=== PATIENT | male | born 1945 | race Caucasian/White ===

== ENCOUNTER → 2018-12-06 11:13 | Outpatient (CLI) | payer MEDICARE, OTHER, SELFPAY ==
[2018-12-06 11:50] LABS: Add Manual Diff / Slide Review NO; Basophils Absolute Auto 0 /uL (0-100); Basophils Percent Auto 0.8 % (0-2); Eosinophils Absolute Auto 100 /uL (0-450); Eosinophils Percent Auto 2.2 % (2-4); Hematocrit 43.8 % (41-53); Hemoglobin 14.8 g/dL (13.5-17.5); Lymphocytes Absolute Auto 1700 /uL (1100-4500); Lymphocytes Percent Auto 30.4 % (25-40); Mean Corpuscular HGB Conc 33.8 % (30-36); Mean Corpuscular Hemoglobin 31.7 PG (26-34); Mean Corpuscular Volume 93.7 fL (80-100); Monocytes Absolute Auto 500 /uL (0-900); Monocytes Percent Auto 8.9 % (3-14); Neutrophils Absolute Auto 3300 /uL (1500-7000); Neutrophils Percent Auto 57.7 % (50-75); Platelet Count 252 X10^3/uL (150-400); Red Blood Cell Count 4.68 X10^6/uL (4.5-5.9); Red Cell Distribution Width 13.4 % (11.6-14.8); White Blood Cell Count 5.7 X10^3/uL (4.5-11.0)
[2018-12-06 13:14] LABS: Alanine Aminotransferase 18 IU/L (21-72); Albumin 4.2 g/dL (3.5-5.0); Albumin Globulin Ratio 1.5 (1.0-2.8); Alkaline Phosphatase 57 U/L (38-126); Aspartate Aminotransferase 22 IU/L (17-59); BUN Creatinine Ratio 16.3 (6-22); Bilirubin Total 0.9 mg/dL (0.2-1.3); Blood Urea Nitrogen 13 mg/dL (9-20); Calcium 9.8 mg/dL (8.4-10.2); Carbon Dioxide 29 mmol/L (22-32); Chloride 105 mmol/L (98-107); Cholesterol 275 mg/dL (140-199); Estimated Glomerular Filt Rate > 60.0 mL/min (>60); Globulin 2.8 g/dL (1.7-4.1); Glucose 95 mg/dL (80-110); HDL Cholesterol 61 mg/dL (40-60); HEMOLYSIS < 15 (0-50); LDL Cholesterol Calculated 184 mg/dL (<100); Potassium 5.1 mmol/L (3.4-5.1); Sodium 140 mmol/L (137-145); Triglycerides 149 mg/dL (35-150)
[2018-12-06 13:45] LABS: Thyroid Stimulating Hormone 1.63 uIU/mL (0.47-4.68)
== END ==
PROVIDERS: Family Provider Internal Medicine; PCP Internal Medicine; Visit Provider Hospitalist
DX: I10 Essential (primary) hypertension (principal)
CPT/HCPCS: 36415; 80053; 80061; 84443; 85025

== ENCOUNTER → 2019-01-08 11:05 | Outpatient (CLI) | payer MEDICARE, OTHER, SELFPAY ==
[2019-01-08 12:11] LABS: Blood Urea Nitrogen 12 mg/dL (9-20); Calcium 10.1 mg/dL (8.4-10.2); Carbon Dioxide 28 mmol/L (22-32); Chloride 108 mmol/L (98-107); Estimated Glomerular Filt Rate > 60.0 mL/min (>60); Glucose 94 mg/dL (80-110); HEMOLYSIS < 15 (0-50); Sodium 145 mmol/L (137-145)
[2019-01-08 12:25] LABS: Potassium 5.4 mmol/L (3.4-5.1)
== END ==
PROVIDERS: Family Provider Internal Medicine; PCP Internal Medicine; Visit Provider Hospitalist
DX: I10 Essential (primary) hypertension (principal)
CPT/HCPCS: 36415; 80048

== ENCOUNTER → 2020-12-01 11:55 | Outpatient (CLI) | payer MEDICARE, OTHER, SELFPAY ==
[2020-12-01 12:57] LABS: Alanine Aminotransferase 13 IU/L (<50); Albumin Globulin Ratio 1.3 (1.0-2.8); Alkaline Phosphatase 61 U/L (38-126); Aspartate Aminotransferase 25 IU/L (17-59); BUN Creatinine Ratio 14.7 (6-22); Bilirubin Total 0.8 mg/dL (0.2-1.3); Blood Urea Nitrogen 10 mg/dL (9-20); Calcium 9.4 mg/dL (8.4-10.2); Carbon Dioxide 27 mmol/L (22-32); Chloride 106 mmol/L (98-107); Cholesterol 261 mg/dL (140-199); Estimated Glomerular Filt Rate > 60.0 mL/min (>60); Globulin 3.1 g/dL (1.7-4.1); Glucose 101 mg/dL (80-110); HDL Cholesterol 63 mg/dL (40-60); HEMOLYSIS < 15 (0-50); LDL Cholesterol Calculated 181 mg/dL (<100); Potassium 5.3 mmol/L (3.4-5.1); Sodium 137 mmol/L (137-145); Total Protein 7.1 g/dL (6.3-8.2); Triglycerides 87 mg/dL (35-150)
[2020-12-01 13:28] LABS: Prostate Specific Antigen Scrn 7.99 ng/mL (0.1-4.0)
[2020-12-01 13:31] LABS: TSH w/ Reflex to FT4 1.89 uIU/mL (0.47-4.68)
[2020-12-02 10:48] LABS: Fecal Immunochemical Test Positive (Negative)
== END ==
PROVIDERS: Family Provider Internal Medicine; PCP Internal Medicine; Referring Provider Internal Medicine; Visit Provider Internal Medicine
DX: E78.2 Mixed hyperlipidemia (principal); Z12.5 Encounter for screening for malignant neoplasm of prostate; I10 Essential (primary) hypertension; Z12.11 Encounter for screening for malignant neoplasm of colon
CPT/HCPCS: 36415; 80053; 80061; 82274; 84443; G0103

== ENCOUNTER → 2020-12-03 14:33 | Outpatient (CLI) | payer MEDICARE, OTHER, SELFPAY ==
[2020-12-04 08:47] LABS: PSA Free % 15.4 % (.); PSA, Total 8.9 ng/mL (0.0-4.0)
== END ==
PROVIDERS: Family Provider Internal Medicine; PCP Internal Medicine; Referring Provider Internal Medicine; Visit Provider Internal Medicine
DX: R97.20 Elevated prostate specific antigen [PSA] (principal)
CPT/HCPCS: 36415; 84153; 84154

== ENCOUNTER → 2021-04-22 11:11 | Outpatient (CLI) | payer MEDICARE, OTHER, SELFPAY ==
[2021-04-22 12:45] LABS: Cholesterol 239 mg/dL (140-199); HDL Cholesterol 67 mg/dL (40-60); LDL Cholesterol Calculated 150 mg/dL (<100); Triglycerides 112 mg/dL (35-150)
[2021-04-22 13:17] LABS: Prostate Specific Antigen 7.81 ng/mL (0.10-4.00)
== END ==
PROVIDERS: Family Provider Internal Medicine; PCP Internal Medicine; Referring Provider Internal Medicine; Visit Provider Internal Medicine
DX: I10 Essential (primary) hypertension (principal); R97.20 Elevated prostate specific antigen [PSA]; E78.2 Mixed hyperlipidemia
CPT/HCPCS: 36415; 80061; 84153

== ENCOUNTER → 2021-12-07 11:04 | Outpatient (CLI) | payer MEDICARE, OTHER, SELFPAY ==
[2021-12-07 13:24] LABS: Alanine Aminotransferase 10 IU/L (<50); Albumin 4.3 g/dL (3.5-5.0); Albumin Globulin Ratio 1.6 (1.0-2.8); Alkaline Phosphatase 56 U/L (38-126); Aspartate Aminotransferase 21 IU/L (17-59); BUN Creatinine Ratio 13.2 (6-22); Bilirubin Total 1.1 mg/dL (0.2-1.3); Blood Urea Nitrogen 10 mg/dL (9-20); Calcium 9.1 mg/dL (8.4-10.2); Carbon Dioxide 26 mmol/L (22-32); Chloride 104 mmol/L (98-107); Cholesterol 221 mg/dL (140-199); Estimated Glomerular Filt Rate > 60 mL/min (>60); Globulin 2.7 g/dL (1.7-4.1); Glucose 91 mg/dL (80-110); HDL Cholesterol 77 mg/dL (40-60); HEMOLYSIS < 15 (0-50); LDL Cholesterol Calculated 123 mg/dL (<100); Potassium 4.6 mmol/L (3.4-5.1); Sodium 137 mmol/L (137-145); Triglycerides 104 mg/dL (35-150)
[2021-12-07 13:55] LABS: Prostate Specific Antigen 7.31 ng/mL (0.10-4.00)
== END ==
PROVIDERS: Family Provider Internal Medicine; PCP Internal Medicine; Referring Provider Internal Medicine; Visit Provider Internal Medicine
DX: E78.2 Mixed hyperlipidemia (principal); R97.20 Elevated prostate specific antigen [PSA]; I10 Essential (primary) hypertension
CPT/HCPCS: 36415; 80053; 80061; 84153

== ENCOUNTER → 2022-07-08 15:23 | Outpatient (CLI) | payer MEDICARE, OTHER, SELFPAY ==
--- NOTE | 2022-07-08 15:43 | DI.RAD.S_ITS ---
PROCEDURE: XR CHEST 2V INDICATIONS: dyspnea TECHNIQUE: 2 views of the chest were acquired. COMPARISON: None. FINDINGS: Surgical changes and devices: None. Lungs and pleura: Lungs appear clear. No pleural effusions or pneumothorax. Mediastinum: Mediastinal contours are normal. Heart size is normal. Bones and chest wall: No suspicious bony abnormalities. Soft tissues appear unremarkable. IMPRESSION: No acute cardiopulmonary abnormality. Dictated by: Mika Gibbs M.D. on 07/08/2022 at 17:26 Approved by: Mika Gibbs M.D. on 07/08/2022 at 17:27
[2022-07-08 16:13] LABS: Add Manual Diff / Slide Review NO; Basophils Absolute Auto 0 /uL (0-100); Basophils Percent Auto 0.6 % (0-2); Eosinophils Absolute Auto 0 /uL (0-450); Eosinophils Percent Auto 0.3 % (2-4); Hemoglobin 14.3 g/dL (13.5-17.5); Lymphocytes Absolute Auto 1500 /uL (1100-4500); Lymphocytes Percent Auto 21.2 % (25-40); Mean Corpuscular HGB Conc 34.1 % (30-36); Mean Corpuscular Hemoglobin 33.1 PG (26-34); Mean Corpuscular Volume 97.1 fL (80-100); Monocytes Absolute Auto 500 /uL (0-900); Monocytes Percent Auto 7.8 % (3-14); Neutrophils Absolute Auto 4900 /uL (1500-7000); Neutrophils Percent Auto 70.1 % (50-75); Platelet Count 207 X10^3/uL (150-400); Red Blood Cell Count 4.32 X10^6/uL (4.5-5.9); Red Cell Distribution Width 14.3 % (11.6-14.8)
[2022-07-08 17:30] LABS: Prostate Specific Antigen 8.75 ng/mL (0.10-4.00)
== END ==
PROVIDERS: Family Provider Internal Medicine; PCP Internal Medicine; Referring Provider Family Medicine; Visit Provider Family Medicine
DX: R06.02 Shortness of breath (principal); R97.20 Elevated prostate specific antigen [PSA]; R60.0 Localized edema
CPT/HCPCS: 36415; 71046; 84153; 85025

== ENCOUNTER 2022-07-16 12:22 | Inpatient (IN) | payer MEDICARE, OTHER, SELFPAY ==
[2022-07-16] VITALS (11 sets, daily range): BP systolic 135–179; BP diastolic 90–113; PULSE 83–114; RESP 15–22; TEMP 36–36.8; O2SAT 97–100; BMI 22.0
--- NOTE | 2022-07-16 12:32 | DI.CT.S_ITS ---
PROCEDURE: CT STROKE INDICATIONS: Left hand weak, left arm, numbness TECHNIQUE: Noncontrast 4.5 mm thick angled axial sections acquired from the foramen magnum to the vertex, with coronal reformats. For radiation dose reduction, the following was used: automated exposure control, adjustment of mA and/or kV according to patient size. COMPARISON: None. FINDINGS: Image quality: Excellent. CSF spaces: Basal cisterns are patent. No extra-axial fluid collections. The ventricles are symmetric in size and shape. Brain: No intracranial bleeds or masses. There is cerebral volume loss for age, with resultant ventricular and sulcal prominence. There are periventricular and deep white matter chronic small vessel ischemic changes. There is intracranial internal carotid artery atherosclerosis. Skull and face: Calvarium and visualized facial bones appear intact, without suspicious lesions. Sinuses: Visualized sinuses and mastoids are clear. IMPRESSION: 1. CT head without acute intracranial abnormalities or acute calvarial fractures. 2. Age-related senescent changes and sequela of chronic small vessel ischemic disease. Findings were discussed with Dr. Henning at 1244 hrs. This study fulfills neurological imaging criteria for inclusion or exclusion of acute stroke therapies based on available published neurological guidelines. Dictated by: Genaro Heller M.D. on 07/16/2022 at 12:42 Approved by: Genaro Heller M.D. on 07/16/2022 at 12:45
--- NOTE | 2022-07-16 12:34 | ED_ITS ---
HPI - Neuro Symptoms/Deficit General Chief Complaint: Neuro Symptoms/Deficit Stated Complaint: Left arm paralyzed, spasms, sudden onset Time Seen by Provider: 07/16/22 12:32 Source: patient Mode of arrival: Ambulatory Limitations: no limitations History of Present Illness HPI Narrative: This is a 77-year-old male recently started on Lasix with no other known medical issues. Patient states today noon he was taking his trash out trying to open a heavy door and realized that his left hand had stopped working. He states he has some numbness and tingling tracking up the arm to the elbow, he states he can not really use his left hand at all he states some mild weakness in arm. Denies headache, vision changes, no numbness or tingling or weakness elsewhere. Patient does not have any chest pain or pressure but noted to have some shortness of breath last 2 weeks was started on Lasix in his in process of getti ng a cardiac workup. He denies nausea or vomiting. No diarrhea constipation or urinary symptoms. Patient has not had similar symptoms in the past his noted sometimes he is had some slurred speech. Patient denies any prior surgeries. No other daily medications. No tobacco, 2 martinis daily, no illicit. Dr. Bey is his primary care physician. He is not anticoagulated. On Anticoagulants: No Related Data Previous Rx's Medication Instructions Recorded furosemide 20 mg tablet 20 mg PO DAILY #30 tabs 07/08/22 Allergies Allergy/AdvReac Type Severity Reaction Status Date / Time No Known Drug Allergies Allergy Verified 07/16/22 12:30 Review of Systems Review of Systems ROS Unobtainable: All systems reviewed & are unremarkable except as noted in HPI and below Hematologic/Lymphatic On Anticoagulants: No Patient History Medical History Abnormal EKG Elevated PSA Essential hypertension Hemorrhoid (~1994) Lower extremity edema Mixed hyperlipidemia Shortness of breath at rest Surgical History Anesthesia History of eye surgery History of tonsillectomy (~1964) Family History Mother Cancer Father CAD (coronary artery disease) Sister Cancer Grandmother Stroke Grandmother Hemorrhage Social History household members: spouse Smoking Status: Former smoker Tobacco: How many years used: 15 alcohol intake: current substance use type: does not use Smoking Status: Former smoker alcohol intake frequency: 0-2 drinks per day Substance Use Type: does not use Exam Narrative Exam Narrative: GEN: well nourished, well appearing male, alert and oriented x 3, patient appears to be in mild distress. HEENT: Atraumatic, pupils are equal round reactive to light, extraocular movements are intact, nares are clear, facial droop. Clear speech. HEART: Regular rate and rhythm without murmur, clicks, rubs. Pulses are equal in upper and lower extremities LUNGS:Lungs clear to auscultation, no wheezes, rales, crackles, chest moves symmetrically ABD:bowel sounds normal, soft, non-tender, no guarding, rebound, rigidity, no masses noted, no hepatosplenomegaly :No CVA tenderness MSCL: Non-tender, no muscle atrophy, muscles strength 5/5 upper and lower extremities except for patient's left hand is almost flaccid he has some movement but very minimal, tube balancer is significantly decreased on the left, patient has normal motion at the shoulder, full range of motion NEURO:CN 2-12 intact, sensation normal, finger nose finger test normal on right, patient has quite a bit difficulty on the left, heel gorman test normal, decreased sensation left hand but not upper arm. Initial Vital Signs Initial Vital Signs: Vital Signs Temperature 97.1 F L 07/16/22 12:23 Pulse Rate 106 H 07/16/22 12:23 Respiratory Rate 15 07/16/22 12:23 Blood Pressure 179/112 H 07/16/22 12:23 Pulse Oximetry 99 07/16/22 12:23 Oxygen Delivery Method 07/16/22 12:23 Course Orders Ordered: Acetaminophen (Acetaminophen 325 Mg Tablet) 650 mg PO Q6H [facility] Last Admin: 07/17/22 00:29 Dose: Not Given Documented By: Admin: 07/16/22 20:24 Dose: Not Given Documented By: Admin: 07/16/22 17:59 Dose: Not Given Documented By: CHARLIE Aspirin (Aspirin 325 Mg Tablet) 325 mg PO DAILY [facility] Atorvastatin Calcium (Atorvastatin 20 Mg Tablet) 20 mg PO BEDTIME [facility] Last Admin: 07/16/22 20:13 Dose: Not Given Documented By: MS Enoxaparin Sodium (Enoxaparin 40 Mg/0.4 Ml Syringe) 40 mg SUBCUT DAILY [facility] Furosemide (Furosemide 20 Mg Tablet) 20 mg PO DAILY [facility] Naloxone HCl (Naloxone 0.4 Mg/Ml Vial) 0.2 mg IV Q2MIN PRN PRN Reason: Opiate Reversal Ondansetron HCl (Ondansetron 4 Mg Odt) 4 mg PO Q8HR PRN PRN Reason: Nausea And Vomiting Sodium Chloride (Sodium Chloride 0.9% Flush) 10 ml IV PRN PRN PRN Reason: Flush Sodium Chloride (Sodium Chloride 0.9% Flush) 10 ml IV BID [facility] Last Admin: 07/16/22 20:15 Dose: 10 ml Documented By: MS Discontinued Medications Aspirin (Aspirin 81 Mg Chew Tab) 324 mg PO NOW ONE Stop: 07/16/22 13:31 Last Admin: 07/16/22 13:42 Dose: 324 mg Documented By: SB Furosemide (Furosemide 40 Mg/4 Ml Vial) 40 mg IV NOW ONE Stop: 07/16/22 13:31 Last Admin: 07/16/22 13:42 Dose: 40 mg Documented By: SB Consultations Consultation #1: [facility] telestroke, Dr. Amato, suspect less likely to be stroke he does not recommend tPA at this point. We discussed that CT angio is down and unlikely to be successful but can tried a bolus manually. He agrees with plan to attempt. At this time he was suspect more of a brachial plexus or lower issue of his arm but recommends appropriate workup. Does ask for more localized evaluation physician extension of the wrist when checking his workers compensation legal secretary. Time: 12:57 Consultation #2: Dr. Amato, suspects more of a peripheral neuropathy. Vital Signs Vital signs: Vital Signs - 8 hr 07/16/22 12:23 07/16/22 13:17 07/16/22 13:20 Temperature 97.1 F L Pulse Rate 106 H 101 H 95 H Respiratory Rate 15 Blood Pressure 179/112 H 168/103 H Pulse Oximetry 99 100 98 Oxygen Delivery Method Room Air Room Air 07/16/22 13:21 07/16/22 13:21 07/16/22 13:30 Temperature Pulse Rate 95 H Respiratory Rate 18 Blood Pressure 147/101 H 149/104 H Pulse Oximetry 98 Oxygen Delivery Method 07/16/22 13:30 07/16/22 13:45 07/16/22 13:45 Temperature Pulse Rate 88 92 H Respiratory Rate 22 Blood Pressure 141/101 H Pulse Oximetry 98 97 Oxygen Delivery Method MDM - Neuro Symptoms/Deficit Lab Data Result diagrams: 07/16/22 12:27 07/16/22 12:27 Labs: Lab Results 07/16/22 07/16/22 07/16/22 Range/Units 12:27 12:27 12:27 WBC 8.0 (4.5-11.0) X10^3/uL RBC 4.53 (4.5-5.9) X10^6/uL Hgb 15.0 (13.5-17.5) g/dL Hct 44.4 (41-53) % MCV 98.1 (80-100) fL MCH 33.1 (26-34) PG MCHC 33.7 (30-36) % RDW 14.4 (11.6-14.8) % Plt Count 233 (150-400) X10^3/uL Neut % (Auto) 75.1 H (50-75) % Lymph % (Auto) 17.2 L (25-40) % [place] % (Auto) 6.7 (3-14) % Eos % (Auto) 0.5 L (2-4) % Baso % (Auto) 0.5 (0-2) % Neut # (Auto) 6000 (3345-4328) /uL Lymph # (Auto) 1400 (3399-3981) /uL [place] # (Auto) 500 (0-900) /uL Eos # (Auto) 0 (0-450) /uL Baso # (Auto) 0 (0-100) /uL PT 13.7 H (10.1-12.7) SECONDS INR 1.2 (0.9-1.3) APTT 29 (26-36) SECONDS Sodium 140 (137-145) mmol/L Potassium 4.0 (3.4-5.1) mmol/L Chloride 103 (98-107) mmol/L Carbon Dioxide 24 (22-32) mmol/L BUN 14 (9-20) mg/dL Creatinine 0.79 (0.66-1.25) mg/dL Estimated GFR > 60 (>60) mL/min BUN/Creatinine Ratio 17.7 (6-22) Glucose 116 H (80-110) mg/dL Calcium 9.4 (8.4-10.2) mg/dL Total Bilirubin 1.7 H (0.2-1.3) mg/dL AST 25 (17-59) IU/L ALT 19 (<50) IU/L Alkaline Phosphatase 74 (38-126) U/L Total Creatine Kinase 75 (55-170) U/L CK-MB (CK-2) TNP CK-MB (CK-2) Rel Index TNP Troponin I 0.034 (0.01-0.034) ng/mL NT-Pro-B Natriuret Pep (<450) pg/mL Total Protein 7.7 (6.3-8.2) g/dL Albumin 4.5 (3.5-5.0) g/dL Globulin 3.2 (1.7-4.1) g/dL Albumin/Globulin Ratio 1.4 (1.0-2.8) Ethyl Alcohol < 10 ( - 10) mg/dL SARS-CoV-2 (PCR) (Negative) 07/16/22 07/16/22 Range/Units 12:27 12:44 WBC (4.5-11.0) X10^3/uL RBC (4.5-5.9) X10^6/uL Hgb (13.5-17.5) g/dL Hct (41-53) % MCV (80-100) fL MCH (26-34) PG MCHC (30-36) % RDW (11.6-14.8) % Plt Count (150-400) X10^3/uL Neut % (Auto) (50-75) % Lymph % (Auto) (25-40) % [place] % (Auto) (3-14) % Eos % (Auto) (2-4) % Baso % (Auto) (0-2) % Neut # (Auto) (0281-1135) /uL Lymph # (Auto) (9311-9759) /uL [place] # (Auto) (0-900) /uL Eos # (Auto) (0-450) /uL Baso # (Auto) (0-100) /uL PT (10.1-12.7) SECONDS INR (0.9-1.3) APTT (26-36) SECONDS Sodium (137-145) mmol/L Potassium (3.4-5.1) mmol/L Chloride (98-107) mmol/L Carbon Dioxide (22-32) mmol/L BUN (9-20) mg/dL Creatinine (0.66-1.25) mg/dL Estimated GFR (>60) mL/min BUN/Creatinine Ratio (6-22) Glucose (80-110) mg/dL Calcium (8.4-10.2) mg/dL Total Bilirubin (0.2-1.3) mg/dL AST (17-59) IU/L ALT (<50) IU/L Alkaline Phosphatase (38-126) U/L Total Creatine Kinase (55-170) U/L CK-MB (CK-2) CK-MB (CK-2) Rel Index Troponin I (0.01-0.034) ng/mL NT-Pro-B Natriuret Pep 9680 H (<450) pg/mL Total Protein (6.3-8.2) g/dL Albumin (3.5-5.0) g/dL Globulin (1.7-4.1) g/dL Albumin/Globulin Ratio (1.0-2.8) Ethyl Alcohol ( - 10) mg/dL SARS-CoV-2 (PCR) Negative (Negative) Point of Care Testing Glucose POC [address] scan - head: Radiologist's Impression: Dr. Heller called head CT to myself is negative CTA - brain/neck: Radiologist's Impression: Close Head/Neck CTA (Signed) Les Denny - 07/16/22 Chest X-Ray (Signed) Genaro Heller - 07/16/[address] (Signed) Genaro Heller - 07/16/22 Launch?[address] [address] [address] Scan Report Signed Patient: Kodi Evans Jr, V MR#: [id number] : 1945 Acct:[id number] Age/Sex: 77 / M Date of Service: 07/16/22 Loc: ED Accession Number: [id number] ?? Procedure: CT angio head and neck Ordering Provider: Chetna Henning D.O. PROCEDURE:? CT ANGIO HEAD AND NECK ? INDICATIONS:? left hand weakness ? TECHNIQUE:? After the administration of intravenous contrast, 1 mm thick sections acquired from the aortic arch through the [place] of [place].? Post-contrast 4.5 mm thick sections then re-acquired from the foramen magnum to the vertex.? 3-dimensional hsxmxac-pjeyojnmq-agnjmeogch (MIP) and/or volume rendering reformats were acquired of the central intracranial vasculature and neck separately. For radiation dose reduction, the following was used:? automated exposure control, adjustment of mA and/or kV according to patient size.? ? COMPARISON:? [facility], CT, CT STROKE, 07/16/2022, 12:38. ? FINDINGS:? Image quality:? Excellent.? ? BRAIN:? CSF spaces:? Ventricles are normal in size and shape.? Basal cisterns are patent.? No extra-axial fluid collections.? ? Brain:? No midline shift.? No intracranial bleeds or masses.? Abrams-white matter interface appears intact.? Age-related volume loss and small vessel ischemic change. ? Skull and face:? Calvarium and facial bones appear intact, without suspicious lesions.? Orbits appear normal.? ? Sinuses:? Sinuses and mastoids are clear.? ? HEAD CT ANGIOGRAPHY:? Anterior circulation:? Intracranial internal carotid arteries are normal in size and flow.? The flow within the paired anterior cerebral arteries is normal and symmetric.? The flow within the middle cerebral arteries is normal and symmetric.? The anterior communicating artery is seen.? No aneurysms are seen.? ? Posterior circulation:? Visualized portions of the vertebral arteries demonstrate normal caliber, and join to form a normal appearing basilar artery.? Flow within the posterior cerebral arteries is normal and symmetric.? No aneurysms are seen.? ? NECK CT ANGIOGRAPHY:? Carotid system:? The great vessels demonstrate a conventional anatomy as they arise from the aortic arch.? The origins of the common carotid arteries appear patent.? The common carotid arteries demonstrate normal caliber and courses.? The bifurcation regions are both widely patent.? The internal carotid arteries demonstrate normal calibers and courses.? ? Posterior circulation:? The origins of the vertebral arteries both appear widely patent.? The more superior extracranial portions of both vertebral arteries also demonstrate normal courses and calibers.? They join to form a normal appearing basilar artery.? ? Soft tissues:? Visualized neck soft tissues demonstrate no suspicious abnormalities.? ? Bones:? No suspicious bony lesions.? Visualized cervical spine appears normally aligned.? IMPRESSION:? ? 1. Age-related volume loss and small vessel ischemic change. ? 2. No evidence acute stroke, hemorrhage, or mass. ? 3. Unremarkable CTA head.? No stenosis, aneurysm, occlusion, or focal filling defect. ? 4. Patent carotids. ? Comment: Findings were discussed with Dr. Henning on? 07/16/2022 at 1322 hours ? ? Any quantitative measurements of stenosis were performed using NASCET criteria.? ? ? Dictated by: Les Denny M.D. on 07/16/2022 at 13:19 ? ? Approved by: Les Denny M.D. on 07/16/2022 at 13:25?? ECG Data Attestation: I personally reviewed and interpreted this ECG as follows: Interpretation: Sinus rhythm with PVCs rate of 95 UT 202 QRS of 132 QTC 467. Patient does not have priors for comparison does have occasional PVC does have some depression in lateral leads appears to have LVH. MDM Narrative Medical decision making narrative: This is a 77-year-old male who presents with complaint of left arm weakness which seems to be more localized to the wrist and hand, he does have some numbness and tingling, he is difficulty with flexion extension as well as tube balancer. Patient's notes occasional difficulty with speech is but none today, his NIH is 2 based on ataxia with that finger and technically not drift as he does not appear weak at the shoulder or elbow but does have weakness to the hand which was acute on set. Head CT was negative, CT angio was able to be obtained although had to be manually bolused these are both read as negative. Patient's labs do not show any electrolyte abnormalities or other clear causes. Case was discussed with neurology who feels this may more likely be a peripheral change they do not currently recommend tPA and patient is comfortable deferring tPA at this time as well. It is his left hand he is right-hand dominant. Patient was given aspirin, he does appear to be fluid overloaded and congestive heart failure. BNP is in the 9000 range, troponin 0.34 he does not have any chest pa in or pressure but has had shortness of breath. He is actually been scheduled for stress test and echo on July 28 he is not hypoxic but would benefit from workup. Neurology recommendations include aspirin daily, if his EF is less than 35% on echo and he is found to have an infarct on his MR they do recommend full anticoagulation. They do not recommend tpa at this time based on low NIH and patient is reluctant to pursue Tpa despite being in window. He does have significant weakness of left hand but is non-dominant hand without other deficits. Patient received asa 324mg and lasix 40mg in ED. They also recommend that they are re-contacted for further recommendations. Spoke with Dr. Rashid who accepts for admission for CVA and acute new onset CHF. Discharge Plan Departure Patient Disposition: Admitted As Inpatient Clinical Impression: Stroke CHF (congestive heart failure) Qualifiers: Heart failure chronicity: acute Admit Date/Time: 07/16/22 14:38 Admit Provider: Kassandra Rashid
--- NOTE | 2022-07-16 12:34 | DI.RAD.S_ITS ---
PROCEDURE: XR CHEST 1V INDICATIONS: sob, being treated for CHF TECHNIQUE: One view of the chest was acquired. COMPARISON: [facility], CR, XR CHEST 2V, 07/08/2022, 15:53. FINDINGS: Surgical changes and devices: None. Lungs and pleura: Lungs appear clear. No substantial pleural effusions or pneumothorax. Mediastinum: Mediastinal contours appear stable. Heart size is mildly enlarged. Bones and chest wall: No suspicious bony lesions. Overlying soft tissues appear unremarkable. IMPRESSION: Mild cardiomegaly. No acute cardiopulmonary abnormalities identified. Dictated by: Genaro Heller M.D. on 07/16/2022 at 12:57 Approved by: Genaro Heller M.D. on 07/16/2022 at 12:59
--- NOTE | 2022-07-16 12:39 | DI.CT.S_ITS ---
PROCEDURE: CT ANGIO HEAD AND NECK INDICATIONS: left hand weakness TECHNIQUE: After the administration of intravenous contrast, 1 mm thick sections acquired from the aortic arch through the [place] of [place]. Post-contrast 4.5 mm thick sections then re-acquired from the foramen magnum to the vertex. 3-dimensional rjfgkok-jjvspheau-mzffxfyqkt (MIP) and/or volume rendering reformats were acquired of the central intracranial vasculature and neck separately. For radiation dose reduction, the following was used: automated exposure control, adjustment of mA and/or kV according to patient size. COMPARISON: [facility], CT, CT STROKE, 07/16/2022, 12:38. FINDINGS: Image quality: Excellent. BRAIN: CSF spaces: Ventricles are normal in size and shape. Basal cisterns are patent. No extra-axial fluid collections. Brain: No midline shift. No intracranial bleeds or masses. Abrams-white matter interface appears intact. Age-related volume loss and small vessel ischemic change. Skull and face: Calvarium and facial bones appear intact, without suspicious lesions. Orbits appear normal. Sinuses: Sinuses and mastoids are clear. HEAD CT ANGIOGRAPHY: Anterior circulation: Intracranial internal carotid arteries are normal in size and flow. The flow within the paired anterior cerebral arteries is normal and symmetric. The flow within the middle cerebral arteries is normal and symmetric. The anterior communicating artery is seen. No aneurysms are seen. Posterior circulation: Visualized portions of the vertebral arteries demonstrate normal caliber, and join to form a normal appearing basilar artery. Flow within the posterior cerebral arteries is normal and symmetric. No aneurysms are seen. NECK CT ANGIOGRAPHY: Carotid system: The great vessels demonstrate a conventional anatomy as they arise from the aortic arch. The origins of the common carotid arteries appear patent. The common carotid arteries demonstrate normal caliber and courses. The bifurcation regions are both widely patent. The internal carotid arteries demonstrate normal calibers and courses. Posterior circulation: The origins of the vertebral arteries both appear widely patent. The more superior extracranial portions of both vertebral arteries also demonstrate normal courses and calibers. They join to form a normal appearing basilar artery. Soft tissues: Visualized neck soft tissues demonstrate no suspicious abnormalities. Bones: No suspicious bony lesions. Visualized cervical spine appears normally aligned. IMPRESSION: 1. Age-related volume loss and small vessel ischemic change. 2. No evidence acute stroke, hemorrhage, or mass. 3. Unremarkable CTA head. No stenosis, aneurysm, occlusion, or focal filling defect. 4. Patent carotids. Comment: Findings were discussed with Dr. Henning on 07/16/2022 at 1322 hours Any quantitative measurements of stenosis were performed using NASCET criteria. Dictated by: Les Denny M.D. on 07/16/2022 at 13:19 Approved by: Les Denny M.D. on 07/16/2022 at 13:25
[2022-07-16 12:52] LABS: Add Manual Diff / Slide Review NO; Basophils Absolute Auto 0 /uL (0-100); Basophils Percent Auto 0.5 % (0-2); Eosinophils Absolute Auto 0 /uL (0-450); Eosinophils Percent Auto 0.5 % (2-4); Hematocrit 44.4 % (41-53); Lymphocytes Absolute Auto 1400 /uL (1100-4500); Lymphocytes Percent Auto 17.2 % (25-40); Mean Corpuscular HGB Conc 33.7 % (30-36); Mean Corpuscular Hemoglobin 33.1 PG (26-34); Mean Corpuscular Volume 98.1 fL (80-100); Monocytes Absolute Auto 500 /uL (0-900); Monocytes Percent Auto 6.7 % (3-14); Neutrophils Absolute Auto 6000 /uL (1500-7000); Neutrophils Percent Auto 75.1 % (50-75); Platelet Count 233 X10^3/uL (150-400); Red Blood Cell Count 4.53 X10^6/uL (4.5-5.9); Red Cell Distribution Width 14.4 % (11.6-14.8)
[2022-07-16 13:01] LABS: INR 1.2 (0.9-1.3); Prothrombin Time 13.7 SECONDS (10.1-12.7)
[2022-07-16 13:04] LABS: PTT Partial Thromboplastin Tim 29 SECONDS (26-36)
[2022-07-16 13:06] LABS: Alanine Aminotransferase 19 IU/L (<50); Alkaline Phosphatase 74 U/L (38-126); Aspartate Aminotransferase 25 IU/L (17-59); BUN Creatinine Ratio 17.7 (6-22); Bilirubin Total 1.7 mg/dL (0.2-1.3); Blood Urea Nitrogen 14 mg/dL (9-20); Calcium 9.4 mg/dL (8.4-10.2); Carbon Dioxide 24 mmol/L (22-32); Chloride 103 mmol/L (98-107); Creatine Kinase 75 U/L (55-170); Estimated Glomerular Filt Rate > 60 mL/min (>60); Ethanol (ETOH) < 10 mg/dL; Glucose 116 mg/dL (80-110); Sodium 140 mmol/L (137-145); Total Protein 7.7 g/dL (6.3-8.2)
[2022-07-16 13:19] LABS: Troponin I 0.034 ng/mL (0.01-0.034)
[2022-07-16 13:24] LABS: NT-proBNP (BNP-Adult 18+) 9680 pg/mL (<450)
[2022-07-16 13:37] LABS: COVID19 -Nasal RAPID Negative (Negative)
[2022-07-16] MEDS: ASPIRIN 81 MG CHEW TAB 324 MG PO (13:42)
[2022-07-16] MEDS: FUROSEMIDE 40 MG/4 ML VIAL IV (13:42)
--- NOTE | 2022-07-16 14:00 | CM.DANOTE ---
Patient is a 77 yo male who was admitted on 07/16/22 to ED for Numbness/spasms. Pt has M[employer] and [employer] for insurance and his PCP is Dr. Lauri Bey. EMR was reviewed. Per ED MD, pt likely to be admitted for further TIA vs CVA workup and awaiting to confirm if his PCP clinic physician feels pt needs to be admitted. SW met bedside with pt and spouse in ED room 6 and explained role and they confirm they live at [facility] for the past 4 years and both are very active and independent at baseline and pt does not use DME for ambulation and still drives. Pt states he was working out about 3-4 days a week for about an hour each time up until about a month ago when he became SOB and has had a stress test and PCP has been doing a workup for possible CHF. Pt and spouse deny any local family or friends and one adult Dtr lives in [place] and one adult Dtr lives in [place] and they see them only about once a year. They deny any hx of HH or SNF either and not currently established with outpt PT or OT as pt was exercising on his own at home. SW inquired about DPOA and they do not think they have completed DPOA pwk and could benefit from a copy of DPOA pwk to review but pt then being taken to imaging. Pt and spouse preference is a full workup and then to return home to [facility] when medically stable. Plan: SW to follow for further testing and confirmation that pt will be admitted and then possible need for OT eval if pt's hand continues to be limited in his ADL's which is below baseline and any further identified needs. KUSUM Da Silva Discharge Planning/Care Management CM Discharge Assessment Start: 07/16/22 13:58 Freq: Status: Active Protocol: Document 07/16/22 13:58 BF (Rec: 07/16/22 14:00 BF [id number]) Discharge Planning Assessment Assigned Card Assembler KUSUM Orourke DPOA/Assigned Designee Name informally spouse Karolina Contact Information [phone] Advance Directives? Yes Advance Directives on File No History Provided By Patient,Significant Other, Medical Record Has Patient been admitted in last 30 No days? Prior Living Arrangements Assisted Living Household Members spouse Type of transporation used prior to Drives own vehicle admit Facility Name Admitted From: [facility] [place] Willing to Return to Facility? Yes: Independent living at [place] Independent with ADL's Yes Is patient alert and oriented? Yes Caregiver for Another No Patient/Family Preference OP OT Therapy Barriers to Discharge No Discharge Plan Assisted Living Facility Transportation Arrangement Spouse bedside and can transport at d/c Referrals Initiated None needed Additional Comment Pending likely OT eval for outpt OT recommendations Review Status In Process Please Provide Date Initial DC 07/16/22 Assessment Was Performed Next Review Type Continued Stay Review
--- NOTE | 2022-07-16 14:32 | DI.MRI.S_ITS ---
PROCEDURE: MR HEAD/BRAIN WO/W CON INDICATIONS: left hand/wrist weakness, sudden onset. TECHNIQUE: Noncontrast axial T1 spin echo, axial T2 fast spin echo, sagittal and axial FLAIR, coronal T2 fast spin echo, axial gradient echo, axial diffusion and ADC through the brain. After the administration of contrast, axial and coronal and sagittal T1 spin echo with fat saturation through the brain. COMPARISON: [facility], CR, XR CHEST 1V, 07/16/2022, 12:44. [facility], CT, CT STROKE, 07/16/2022, 12:38. [facility], CT, CT ANGIO HEAD AND NECK, 07/16/2022, 12:44. FINDINGS: Image quality: Excellent. CSF spaces: Basal cisterns are patent. No extra-axial fluid collections. Ventricles are normal in size and shape. Brain: On the right side, there are 2 foci of abnormal diffusion-weighted signal, with associated dark signal on the ADC map. One is seen within the right head of the caudate, as on series 11, image 70. A 2nd is seen within the peripheral hernandez matter of the right frontal lobe posteriorly, as on series 11 image 73. Developing abnormal T2 weighted signal can be seen at these sites. No abnormal enhancement can be seen at these sites. There is an additional focus of increased diffusion-weighted signal seen within the deep white matter of the left frontal lobe. However, no associated dark signal can be seen on the ADC map to suggest drain infarction in this is attributed to artifact from T2 shine through. No midline shift. No intracranial bleeds or masses. No abnormal intracranial enhancement. There is cerebral volume loss for age. There is periventricular white matter chronic small vessel ischemic change. The brainstem appears normal. No chronic ischemic insults. Normal intravascular flow voids are present. Skull and face: Calvarial marrow is normal in signal. Orbits appear normal. Sinuses: There is a mucous retention cyst seen within the inferior aspect of the left maxillary sinus. Minimal mucosal thickening is seen elsewhere within the paranasal sinuses. No abnormal fluid is seen within the mastoid air cells. IMPRESSION: There are 2 foci of abnormal diffusion-weighted signal seen within the right cerebral hemisphere, which are consistent with subacute infarctions. No masses or abnormal enhancement can be seen. Dictated by: Jhony Castillo M.D. on 07/16/2022 at 14:25 Approved by: Jhony Castillo M.D. on 07/16/2022 at 14:29
--- NOTE | 2022-07-16 15:52 | PC.NURSE ---
Day shift: Pt in room from ED at approx 1545. He is A&Ox4. Walking and talking WNL. Left hand weakness and can move left hand fingers. Oriented to room and call light. Dr Washington office made aware that Pt is on the AC unit at this time. 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 All orders are ED orders at this time.
--- NOTE | 2022-07-16 16:17 | P.HP_ITS ---
History of Present Illness History of Present Illness Date Patient Seen: 07/16/22 Chief complaint: Left arm paralyzed, spasms, sudden onset Narrative: Pt is a 77yo man with HTN and hyperlipidemia who presented with acute left arm weakness. The pt reports that around 12pm today he was taking the garbage to the disposal area at [facility] when he noted his left arm trembling uncontrollably. The left hand was tensed into a near fist and he was unable to move his fingers well. He went back to his apartment, and his brought him straight to the ED for evaluation. The pt denies any associated chest pain, other focal weakness, or neck pain. He states he has never had anything similar happen in the past. The pt has had increasing SOB over the past month. He states that he now frequently wakes in the night feeling SOB, and has to stand up for it to resolve. He has had mild LE edema as well. He denies any recent cough, fever. He was evaluated by Dr Arce on 07/08/22. With concern for CHF, echo, stress test, CXR, and labs were ordered. CXR and CBC were reassuring. The pt believes his stress test was completed, however results not viewable in our system. In the ED today, the pt was noted to have an NIH stroke scale of 2. Lab work showed an elevated BNP but was otherwise reassuring. CTA of head with bolus push of contrast was reassuring. MRI completed showed 2 small subacute infarcts in the right hemisphere. Patient History Medical History Abnormal EKG Elevated PSA Essential hypertension Hemorrhoid (~1994) Lower extremity edema Mixed hyperlipidemia Shortness of breath at rest Surgical History Anesthesia History of eye surgery History of tonsillectomy (~1964) Family & Social History Family History Mother Cancer Father CAD (coronary artery disease) Sister Cancer Grandmother Stroke Grandmother Hemorrhage Social History: household members spouse Prior Living Arrangements Assisted Living Safety & Behavioral: Feels Safe in Current Yes Environment Been Physically Hurt or No Threatened By a Person Tobacco & Substance use: Smoking Status Former smoker alcohol intake current alcohol intake frequency 0-2 drinks per day Substance Use Type does not use Meds Home Medications and Allergies Home Medications Medication Instructions Recorded Confirmed Type furosemide 20 mg tablet 20 mg PO DAILY #30 tabs 07/08/22 07/08/22 Rx Allergies Allergy/AdvReac Type Severity Reaction Status Date / Time No Known Drug Allergies Allergy Verified 07/16/22 12:30 Exam Vital Signs (past 8 hours): - 07/16/22 12:23 07/16/22 13:17 07/16/22 13:20 Temperature 97.1 F L Pulse Rate 106 H 101 H 95 H Respiratory Rate 15 Blood Pressure 179/112 H 168/103 H Pulse Oximetry 99 100 98 Oxygen Delivery Method Room Air Room Air 07/16/22 13:21 07/16/22 13:21 07/16/22 13:30 Temperature Pulse Rate 95 H Respiratory Rate 18 Blood Pressure 147/101 H 149/104 H Pulse Oximetry 98 Oxygen Delivery Method 07/16/22 13:30 07/16/22 13:45 07/16/22 13:45 Temperature Pulse Rate 88 92 H Respiratory Rate 22 Blood Pressure 141/101 H Pulse Oximetry 98 97 Oxygen Delivery Method 07/16/22 14:02 07/16/22 14:03 07/16/22 14:03 Temperature Pulse Rate 114 H 106 H Respiratory Rate Blood Pressure 172/113 H Pulse Oximetry 97 Oxygen Delivery Method 07/16/22 14:15 07/16/22 14:15 Temperature Pulse Rate 90 Respiratory Rate 22 Blood Pressure 163/103 H Pulse Oximetry 98 Oxygen Delivery Method Oxygen Delivery Method Room Air Narrative Exam Narrative: GEN - alert, cooperative and no distress HEENT - normocephalic and atraumatic, moist mucus membranes NECK - FROM, no adenopathy, no JVD HEART - RRR, S1, S2 normal, no S3 or S4, no murmurs LUNGS - symmetric chest rise, no accessory muscles, mild crackles with coarse breath sounds bilateral bases ABD - flat, nondistended, normal bowel sounds, soft, nontender and no hepatomegaly, splenomegaly or masses EXT - no cyanosis, clubbing or edema SKIN - no rashes or suspicious lesions NEURO - alert and and oriented to person, place and situation, sensation to light touch intact UE and LE, 5/5 strength LE, 5/5 strength right UE, 5/5 strength flexion/extension at wrist and elbow on left, 3-4/5 strength in fingers, CN II-XII intact, finger to nose intact on right, great difficulty on the left, heel to gorman normal Objective Labs Result Diagrams: 07/16/22 12:27 07/16/22 12:27 Labs: Laboratory Results - last 24 hr 07/16/22 07/16/22 07/16/22 12:27 12:27 12:27 WBC 8.0 RBC 4.53 Hgb 15.0 Hct 44.4 MCV 98.1 MCH 33.1 MCHC 33.7 RDW 14.4 Plt Count 233 Neut % (Auto) 75.1 H Lymph % (Auto) 17.2 L Schley % (Auto) 6.7 Eos % (Auto) 0.5 L Baso % (Auto) 0.5 Neut # (Auto) 6000 Lymph # (Auto) 1400 Schley # (Auto) 500 Eos # (Auto) 0 Baso # (Auto) 0 PT 13.7 H INR 1.2 APTT 29 Sodium 140 Potassium 4.0 Chloride 103 Carbon Dioxide 24 BUN 14 Creatinine 0.79 Estimated GFR > 60 BUN/Creatinine Ratio 17.7 Glucose 116 H Calcium 9.4 Total Bilirubin 1.7 H AST 25 ALT 19 Alkaline Phosphatase 74 Total Creatine Kinase 75 CK-MB (CK-2) TNP CK-MB (CK-2) Rel Index TNP Troponin I 0.034 NT-Pro-B Natriuret Pep Total Protein 7.7 Ethyl Alcohol < 10 SARS-CoV-2 (PCR) 07/16/22 07/16/22 12:27 12:44 WBC RBC Hgb Hct MCV MCH MCHC RDW Plt Count Neut % (Auto) Lymph % (Auto) Schley % (Auto) Eos % (Auto) Baso % (Auto) Neut # (Auto) Lymph # (Auto) Schley # (Auto) Eos # (Auto) Baso # (Auto) PT INR APTT Sodium Potassium Chloride Carbon Dioxide BUN Creatinine Estimated GFR BUN/Creatinine Ratio Glucose Calcium Total Bilirubin AST ALT Alkaline Phosphatase Total Creatine Kinase CK-MB (CK-2) CK-MB (CK-2) Rel Index Troponin I NT-Pro-B Natriuret Pep 9680 H Total Protein Ethyl Alcohol SARS-CoV-2 (PCR) Negative Assessment & Plan Assessment & Plan narrative: Pt is a 77yo man with HTN and hyperlipidemia who presented with acute left arm weakness. Most consistent with CVA based on MRI findings with subacute infarcts present. Telestroke consulted from the ED, did not recommend TPA. 1) CVA with left hand weakness: Pt already with some return of function to the left hand, which is reassuring. Less likely cervical spine issue, as originally suspected in the ED, due to infarcts seen on MRI. - Discussed statin in detail with the patient. He doesn't like taking medicati ons, and wishes to think about it. Will continue discussion tomorrow, not initiated tonight. - PT/OT consulted - Echocardiogram tomorrow. If EF < 35%, stroke specialists recommended initiation of full anticoagulation - Continue full dose Aspirin for now 2) Acute CHF: Pt likely with mild acute CHF exacerbation as well. This is a new diagnosis for him. Symptoms and exam findings consistent. - Echo as above tomorrow - Continue Lasix, pt received additional dose in the ED - Monitor for symptom improvement. Discussed that based on Echo results, may recommend additional medications tomorrow. Pt is hesitant, but willing to consider. 3) HTN: BP is elevated, but will allow for permissive hypertension for now. Pt had previously stopped Amlodipine. - Continue to monitor FEN: General diet after swallow eval Code: Full DVT ppx: Lovenox Dispo: Pending additional work-up as above. Potentially ready for d/c tomorrow afternoon. Time Spent With Patient Critical Care time: I spent a total of [] minutes of critical care time on this patient's care today; this time is exclusive of procedural time.
--- NOTE | 2022-07-16 16:45 | DI.ECHO.S_ITS ---
[facility]---------+ [facility] +---------+ : : [address] : [address] [address] : : : : [id number] : : : : Phone: [phone]+ Echocardiogram Report + + :Name: THUY SALINAS JR, V Study Date: 07/17/2022 Height: 68 in : :[facility] ReadingLocation: Weight: 145 lb : : Gender: Male BSA: 1.8 m2 : :: 1945 Age: 77 yrs BP: 138/92 mmHg: :Reason For Study: CVA : :Ordering Physician: SARAH, : :ELLE Performed By: Anel Ferreira : :Referring: ELLE SMITH : + + Interpretation Summary Sinus rhythm with wide QRS complexes. Severely dilated left ventricle with focal wall motion abnormalities consistent with prior PDA territory infarction. There is evidence of adherent thrombus present along the anteroseptal wall. Ejection fraction is estimated at 10%. EPSS is 2.4 which is consistent with severe cardiomyopathy. Stage 3 diastolic dysfunction. Severe left atrial enlargement is also present. RV is moderately-severely dilated with moderately reduced RV systolic function. There is moderate tricuspid regurgitation with estimated PA systolic pressure 61 mm Hg assuming RA pressure of 15 mm Hg. Otherwise there are no significant valvular abnormalities. There is no prior echocardiogram at [facility] available for comparison. Procedure: A two-dimensional transthoracic echocardiogram with color flow and Doppler was performed. The study quality was technically good. There is no prior echocardiogram noted for this patient. The patient was in sinus rhythm with heart rates between 83-91 bpm during the exam. Left Ventricle: The estimated left ventricular end diastolic volume is 293 ml. The left ventricle is severely dilated. There is mild asymmetric left ventricular hypertrophy. The ejection fraction is estimated to be 10-15%. Diastolic parameters suggest a restrictive filling pattern consistent with probable significantly elevated filling pressures. Right Ventricle: The right ventricle is moderate to severely dilated. Right ventricular systolic function is moderately reduced. Atria: The left atrium is severely dilated. The right atrium is mildly dilated. There is no Doppler evidence for an interatrial shunt. Mitral Valve: The mitral valve leaflets appear mildly thickened, but open well. There is mild mitral regurgitation. Aortic Valve: The aortic valve is trileaflet. The aortic valve opens well. There is no aortic valve stenosis. There is mild aortic regurgitation. Tricuspid Valve: The tricuspid valve leaflets are thin and pliable. There is moderate tricuspid regurgitation. Pulmonic Valve: The pulmonic valve leaflets are thin and pliable; valve motion is normal. There is mild to moderate pulmonic regurgitation. Great Vessels: The aortic root is borderline dilated. The ascending aorta is at the upper limits of normal in size. The IVC is of normal diameter and collapses greater than 50% with a sniff. This suggests a low right atrial pressure of 3 mm Hg. Pericardium/ Pleura There is no pericardial effusion. There is no pleural effusion. MMode/2D Measurements & Calculations LVIDd: 7.4 cm LVOT diam: 2.2 cm LVIDs: 7.2 cm Ao root diam: 3.8 cm FS: 2.8 % asc Aorta Diam: 3.8 cm EPSS: 2.4 cm Ao Arch Diam (Prox Trans): 2.9 cm IVSd: 1.3 cm LVPWd: 0.65 cm LV caldwell. diameter/BSA (cm/m^2): 4.1 LV sys. diameter/BSA (cm/m^2): 4.0 LA A2 area: 34.8 cm2 RA long axis: 5.6 cm LA A4 area: 30.3 cm2 RA area: 21.8 cm2 LA length (vol): 6.4 cm RA vol: 71.8 ml LA vol: 140.4 ml RA : 40.3 ml/m2 LA vol index: 78.7 ml/m2 IVC diam: 1.7 cm RVD1 (basal): 5.0 cm RVD2 (mid): 4.1 cm TAPSE: 1.1 cm Doppler Measurements & Calculations Ao V2 max: 90.2 cm/sec LVOT Max Andrey: 61.5 cm/sec Ao V2 mean: 62.7 cm/sec LV V1 max P.5 mmHg Ao max P.3 mmHg LV V1 VTI: 7.4 cm Ao mean P.7 mmHg DARREN(I,D): 2.3 cm2 Ao V2 VTI: 12.2 cm DARREN(V,D): 2.5 cm2 sev ratio: 0.61 DARREN indexed to BSA (cm^2/m^2): 1.3 MV E max andrey: 67.4 cm/sec TR max andrey: 340.4 cm/sec MV A max andrey: 12.3 cm/sec TR max P.4 mmHg MV E/A: 5.5 PA Accel Time: 0.05 sec Med Peak E' Andrey: 2.3 cm/sec E/E' med: 29.2 Lat Peak E' Andrey: 2.8 cm/sec E/E' lat: 24.3 E/e' average: 26.8 MV dec time: 0.14 sec SV(OT): 27.6 ml Electronically signed by: Chaya Velasco M.D. on Reading Physician:07/17/2022 12:10 PM
[2022-07-16 18:39] LABS: Albumin 4.5 g/dL (3.5-5.0); Albumin Globulin Ratio 1.4 (1.0-2.8); Globulin 3.2 g/dL (1.7-4.1); HEMOLYSIS 24 (0-50)
[2022-07-16] MEDS: SODIUM CHLORIDE 0.9% FLUSH 10 ML IV (20:15)
[2022-07-17 00:25] VITALS: BP 126/78; PULSE 75; RESP 18; TEMP 37.2; O2SAT 95
[2022-07-17 03:17] VITALS: BP 116/70; PULSE 70; RESP 18; TEMP 36.8; O2SAT 98
[2022-07-17] MEDS: ASPIRIN 325 MG TABLET PO (08:29)
[2022-07-17] MEDS: SODIUM CHLORIDE 0.9% FLUSH 10 ML IV ×2 (08:29→20:44)
[2022-07-17] MEDS: ENOXAPARIN 40 MG/0.4 ML SYRINGE SUBCUT (08:29)
[2022-07-17] MEDS: FUROSEMIDE 20 MG TABLET PO (08:29)
[2022-07-17 08:30] VITALS: BP 138/92; PULSE 78; RESP 18; TEMP 36.2; O2SAT 100
--- NOTE | 2022-07-17 08:55 | PT.IIE ---
Current Diagnoses Cerebral infarction, unspecified (07/16/22) Surgical History (Last Reviewed 07/16/22 @ 12:36 by Chetna Henning DO) Anesthesia History of eye surgery History of tonsillectomy (~1964) Medical History (Last Reviewed 07/16/22 @ 12:36 by Chetna Henning DO) Abnormal EKG Elevated PSA Essential hypertension Hemorrhoid (~1994) Lower extremity edema Mixed hyperlipidemia Shortness of breath at rest Physical Therapy Inpatient Evaluation/Re-Eval M1 PT/OT-IP Prior Functional Status Start: 07/17/22 11:53 Freq: NEEDED Status: Active Protocol: Document 07/17/22 08:55 AB (Rec: 07/17/22 12:13 AB [id number]) Medical Review Prior Functional Status Medical History Reviewed Yes Communication able to make needs known Mobility and Gait pt stated that he is independent with all mobilities and ambulation without AD Social History Household Members spouse Living Arrangements Assisted Living Number of Floors (Floors) One Floor Number of Stairs To Enter/Railing? pt lives at [facility] Independent Living: lives at the 3rd floor apartment with an elevator to get to their floor 1 level apartment and no steps to enter Home Environment High Toilet,Walk in Shower, Built-In Shower Seat Home Equipment Hand Held Shower,Grab Bars Near Toilet,Grab Bars In Shower M2 PT-IP Current Condition Start: 07/17/22 11:53 Freq: NEEDED Status: Active Protocol: Document 07/17/22 08:55 AB (Rec: 07/17/22 12:13 AB [id number]) Physical Therapy Current Condition Current Condition Evaluation Date 07/17/22 Treatment Diagnosis R CVA; weakness Onset Date 07/16/22 M3 PT-IP Subjective Start: 07/17/22 11:53 Freq: NEEDED Status: Active Protocol: Document 07/17/22 08:55 AB (Rec: 07/17/22 12:13 AB [id number]) Subjective Physical Therapy Visit Type Type Initial Evaluation Visit Start Time 08:55 Visit Stop Time 09:26 Total Visit Minutes 31 Number of MANAGEMENT ENGINEER Visits 0 Physical Therapy Visit Comments Patient Comments agreeable to do PT Therapy Pain Assessment Pain Present Pain Present Denied Pain M4 PT-IP Mobility and Gait Start: 07/17/22 11:53 Freq: NEEDED Status: Active Protocol: Document 07/17/22 08:55 AB (Rec: 07/17/22 12:13 AB [id number]) PT-Bed Mobility Assessment Supine to Sit Supine to Sit Independent Sit to Supine Sit to Supine Independent PT-Transfer Assessment Sit to and From Stand Sit to and from Stand Independent Equipment Transfer Assistive Device None Orthotic/Prosthetic Devices or Brace: No Comments Mobility Comments checked on pt and up and walking in room without AD. spouse in room. pt able to ambulate in room without AD independently. also completed bed mobility I. Pt stated that he has LUE weakness and that he gets tired easily. Pt with dx CHF. educated pt on energy conservation and pacing . UE strength assesed. RUE . LUE : shoulder, elbow, wrist strength WFL but has decrease boiler tube reamer, grasp and pincer strength able to complete finger opposition on all fingers except 4th and 5th fingers. educated pt on hand exercises and completed: finger flexion/ext/abd, towel scrunches. Tinetti Balance assessment completed: which relates to low fall risk informed pt regarding outpt PT or OT for hand therapy and pt agreed. Gait Assessment Gait Gait Assistance Required: Independent Distance (Feet) 50 Able to Maintain Weight Bearing Status Yes During Gait Assistive Devices Assistive Device None Orthotic/Prosthetic Devices or Brace: No Gait Deviations General Gait Pattern Antalgic,Lateral Trunk Lean Factors Limiting Gait Function Factors Limiting Gait Function Decreased Activity Tolerance PT-Balance Assessment Sitting Balance and Reactions Static Sitting Balance Ability Normal Dynamic Sitting Balance Ability Normal Standing Balance and Reactions Static Standing Balance Ability Normal Dynamic Standing Balance Ability Good Device Used without AD Functional Assessments Functional Tests Tinetti Balance and Gait Assessment bal score: 16 gait score: 05/08 total score M5 PT-IP Objective Assessments Start: 07/17/22 11:53 Freq: NEEDED Status: Active Protocol: Document 07/17/22 08:55 AB (Rec: 07/17/22 12:13 AB [id number]) Orientation Orientation/Cognition Level of Alertness Alert Orientation Name,Age,Birthday,Month,Date, Year,Day of Week,Place, Situation Language Function Ability No Deficits Noted Safety Awareness Understands Safety Issues Memory Description No Deficits Noted Gross Range of Motion Lower Extremity ROM Assessment Within Functional Limits Strength Upper Extremity Strength Assessment Left Impaired Shoulder 5/5 Elbow 5/5 Wrist 4+/5 Hand 3+/5 Lower Extremity Strength Assessment Within Functional Limits Muscle Tone Muscle Tone WNL Yes M6 PT-IP Treatment Start: 07/17/22 11:53 Freq: NEEDED Status: Active Protocol: Document 07/17/22 08:55 AB (Rec: 07/17/22 12:13 AB [id number]) Physical Therapy Treatment Other Treatments Other Treatment Performed pls refer to mobility section for details : hand/finger exercises completed M7 PT-IP Assessment and Plan Start: 07/17/22 11:53 Freq: NEEDED Status: Active Protocol: Document 07/17/22 08:55 AB (Rec: 07/17/22 12:13 AB [id number]) PT Summary Assessment and Plan Potential Rehabilitation Potential Good Status of Condition at Evaluation Stable Summary Impairments Strength Assessment Summary PT eval completed. Pt is independent with mobility without AD but presents with L hand/finger weakness ( decrease grasp, boiler tube reamer and pincer ). pt will require outpt PT/OT hand therapy. No further PT indicated here in the hospital. Frequency of Treatment Frequency Of Treatment Discharge Recommendations To Nursing Amount of Assist Needed Independent Discharge Recommendations PT Discharge Recommendations Home,Outpatient PT Transportation Needs at Discharge Private Vehicle
--- NOTE | 2022-07-17 10:18 | CM.DPC ---
Addendum entered by Bessy Saldaña R.N. 07/17/22 15:46: Spoke with pt about HH PT for strengthening upon discharge. Pt declined. He states that he will perform exercises that he has written down from PT today independently at home. This CM spoke with Laney, PT who recommends outpatient PT to work with his left hand. Plan: Home with when Medically stable Original Note: DCP: This DCP met with pt and his in room. He was sitting up at bedside. A+Ox4 and in pleasant spirits. Pt reports that he drives occasional, but drives 90% of the time, he confirms that both live together at [facility] in independent living and live conveniently close to safeway, library and other shops, so are able to walk. He declines use of DME at baseline. P: Home with when medically stable. Pt eval pending.
[2022-07-17] MEDS: FUROSEMIDE 40 MG/4 ML VIAL IV (13:29)
[2022-07-17] MEDS: HEPARIN 5,000 UNIT/ML VIAL 4000 UNIT IV (13:29)
[2022-07-17] MEDS: HEPARIN DRIP 25,000 UNIT/500 ML IV.SOLN 16 UNIT IV (13:48)
[2022-07-17 14:59] LABS: PTT Partial Thromboplastin Tim 165 SECONDS (26-36)
[2022-07-17 15:47] LABS: PTT Partial Thromboplastin Tim 74 SECONDS (26-36)
[2022-07-17 16:00] VITALS: BP 148/97; PULSE 94; RESP 16; TEMP 36.2; O2SAT 97
--- NOTE | 2022-07-17 17:22 | P.PN_ITS ---
Subjective Subjective Date Patient Seen: 07/17/22 Time Patient Seen: 17:26 Interval history: Patient seen in follow-up of CVA. Patient has no issues. He is completely asymptomatic as far as his left hand goes. And is feeling good. Has no real complaints. As of this morning when I saw him he was having no symptoms of his stroke and had moved his hand completely. He has no new symptoms. Discussion with patient shows that he has been a little short of breath a week ago and started on Lasix. But otherwise has been feeling well. He is never had any chest pain or other issues. Never had any orthopnea PND or other changes. Recently referred to calender machine operator. Patient has had hyperkalemia with lisinopril in the past. Has been treated for blood pressure. Isn't always completely interested in taking his medicine but overall blood pressure has been improved Exam Vital Signs (past 8 hours): - 07/17/22 16:00 Temperature 97.1 F L Pulse Rate 94 H Respiratory Rate 16 Blood Pressure 148/97 H Pulse Oximetry 97 Oxygen Flow Rate 0 Oxygen Delivery Method Room Air Oxygen Flow Rate 0 Narrative Exam Narrative: Alert male in no acute distress Mucous membranes moist. Neck supple with no definitive JVD. Lungs are clear heart is regular rate and rhythm without murmurs clicks rubs or gallop does seem to have a lift the left mid ribs. Abdomen is benign extremities without edema neurologic exam is normal Objective Labs Result Diagrams: 07/16/22 12:27 07/16/22 12:27 Labs: Laboratory Results - last 24 hr 07/16/22 07/17/22 07/17/22 12:27 02:16 15:32 APTT 165 H* D 74 H* D Albumin 4.5 Globulin 3.2 Albumin/Globulin Ratio 1.4 [facility] Medical History Abnormal EKG Elevated PSA Essential hypertension Hemorrhoid (~1994) Lower extremity edema Mixed hyperlipidemia Shortness of breath at rest Surgical History Anesthesia History of eye surgery History of tonsillectomy (~1964) Family History Mother Cancer Father CAD (coronary artery disease) Sister Cancer Grandmother Stroke Grandmother Hemorrhage Social History household members: spouse Smoking Status: Former smoker Tobacco: How many years used: 15 alcohol intake: current substance use type: does not use Assessment & Plan Assessment & Plan narrative: Congestive heart failure severe estimated ejection fraction of 10%. Interesting because patient is not had any significant symptoms of cardiac disease or other issues. Other than his hypertension. He seems to have been pretty healthy with no major issues. Clearly that is not what is happening with his heart. We discussed extensively with patient what this represents. In the wrist. His tele has remained stable without significant issues certainly at risk for arrhythmias. Discussed with calender machine operator about transfer. She feels like there is really no need at this time for higher level care because they will not do catheter until 1 [address]. Also Dr. Orellana will come see patient on Tuesday. Already set up. No other changes. After discussion with calender machine operator will start Lasix. His blood pressure has been relatively high but that probably would be good for his recent stroke and the question is do we start low-dose Arb to begin treatment of his congestive heart failure. After discussion we elected to do very low-dose losartan and will follow. Long discussion with family and patient. They seem to understand. All questions were answered. Right-sided cerebral infarctions. Will assume that this is coming from the clot in his right ventricle. With a long discussion with patient and family. We recently has started him on heparin to reduce risk recurrent stroke. We discussed with them that given that he just recently had a stroke there is risk that he could bleed into those and that is the risk we have. I think the risk of treating a known clot which has already thrown thrombi is higher than the risk of bleed. We are struggling with the idea that we need to begin treatment for his heart with the fact that he needs his blood pressure higher for his brain recovery. He has completely recovered at this time and we will watch closely. If his blood pressure is greatly affected by very low-dose losartan we will start. Hypertension. Most of the time he is running in the 160s which is good overall. Hopefully can maintain that he did have some lower blood pressures this morning. Will just have to watch and see how things go. May need to stop losartan depending on how he responds. Code status full. We rediscussed this with them in the risk. They understand. DVT prophylaxis on heparin. Disposition. Patient will least be here 48-72 more hours depending on response and Cardiology input. He understands. Family understands. 1 hour spent today on patient education, questions, discussion with calender machine operator, chart review and dictation and orders Time Spent With Patient Critical Care time: I spent a total of [] minutes of critical care time on this patient's care today; this time is exclusive of procedural time. Quality VTE Deep Vein Thrombosis/Pulmonary Embolism Present on Admission: No
[2022-07-17 20:13] VITALS: BP 148/101; PULSE 89; RESP 18; TEMP 36.2; O2SAT 99
[2022-07-17] MEDS: ATORVASTATIN 20 MG TABLET PO (20:44)
[2022-07-17 20:50] LABS: Appearance Urine UA CLEAR; Bilirubin Urine UA NEGATIVE (NEGATIVE); Color Urine UA LT. YELLOW; Glucose Urine UA NEGATIVE (Negative); Ketones Urine UA NEGATIVE (NEGATIVE); Leukocyte Esterase Urine UA NEGATIVE (NEGATIVE); Nitrite Urine UA NEGATIVE (Negative); Occult Blood Urine UA NEGATIVE (Negative); Protein Urine UA NEGATIVE (Negative)
[2022-07-17 20:53] LABS: UR Morphine/Opiate cutoff 300 Negative (Negative); Ur Creatinine Normal (Normal); Ur Specific Gravity Normal (Normal); Urine Amphetamines Negative (Negative); Urine Barbiturates Negative (Negative); Urine Benzodiazepines Negative (Negative); Urine Cocaine Negative (Negative); Urine MDMA Negative (Negative); Urine Methadone Negative (Negative); Urine Methamphetamines Negative (Negative); Urine Oxycodone Negative (Negative); Urine Phencyclidine Negative (Negative); Urine Tetrahydrocannabinol Negative (Negative); Urine Tricyclic Antidepressant Negative (Negative); Urine pH Normal (Normal)
[2022-07-17 20:54] LABS: PTT Partial Thromboplastin Tim 60 SECONDS (26-36)
[2022-07-17 20:58] LABS: RBC Urine None Seen (0-5/HPF); Squamous Epithelial Cell Urine 0-1 /HPF (0-5/HPF); WBC Urine 0-1/HPF (0-5/HPF)
[2022-07-17 20:59] LABS: Bacteria Urine None Seen; Culture Indicated Urine Cult Not Indicated
--- NOTE | 2022-07-17 21:51 | PC.NURSE ---
Addendum entered by Haven Le R.N. 07/18/22 05:05: Weight today is 61.5 kg which appears that patient has lost significant weight. Noted that weight entered on the admission assessment was entered incorrectly and was suppose to have been 61 kg. So, weight is actually only up 0.5kg Original Note: Patient is alert and oriented. Neurologic exam WNL except has some weakness in left hand. Breath sounds CTA with RA sat of 99%. 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 BP was 148/101 but MD is allowing for permissive hypertension and patient is to start on Losartan in the morning. Denies nausea. BT present and abdomen is soft. Has some urinary frequency but denies dysuria and UA sent down was negative. Is independent with mobility. Denies pain. SCD's not in use as patient is up in room frequently to use bathroom. Fall risk score is moderate but patient is steady on feet so alarm is not in use. Remains on heparin infusion. rooming in.
[2022-07-18] VITALS (10 sets, daily range): BP systolic 104–133; BP diastolic 59–89; PULSE 66–91; RESP 16–19; TEMP 36.2–37.9; O2SAT 96–99
[2022-07-18 02:25] LABS: PTT Partial Thromboplastin Tim 49 SECONDS (26-36)
[2022-07-18 05:56] LABS: Hematocrit 43.7 % (41-53); Platelet Count 201 X10^3/uL (150-400)
[2022-07-18 06:02] LABS: Alanine Aminotransferase 15 IU/L (<50); Albumin 3.5 g/dL (3.5-5.0); Albumin Globulin Ratio 1.3 (1.0-2.8); Alkaline Phosphatase 58 U/L (38-126); Aspartate Aminotransferase 21 IU/L (17-59); BUN Creatinine Ratio 30.8 (6-22); Bilirubin Total 1.1 mg/dL (0.2-1.3); Blood Urea Nitrogen 20 mg/dL (9-20); Calcium 8.6 mg/dL (8.4-10.2); Carbon Dioxide 27 mmol/L (22-32); Chloride 102 mmol/L (98-107); Estimated Glomerular Filt Rate > 60 mL/min (>60); Globulin 2.8 g/dL (1.7-4.1); Glucose 90 mg/dL (80-110); HEMOLYSIS < 15 (0-50); Potassium 3.1 mmol/L (3.4-5.1); Sodium 139 mmol/L (137-145); Total Protein 6.3 g/dL (6.3-8.2)
[2022-07-18 08:23] LABS: PTT Partial Thromboplastin Tim 54 SECONDS (26-36)
--- NOTE | 2022-07-18 08:58 | P.PN_ITS ---
Subjective Subjective Date Patient Seen: 07/18/22 Time Patient Seen: 08:58 Interval history: Patient seen in follow-up of severe congestive heart failure and right-sided cerebral infarctions. Patient overall feeling well. Really has no complaints. Still somewhat weak in the left hand but otherwise no complaints. No change from yesterday. Has had no chest pain. Or no other changes. Telemetry has been stable through the night. But no significant arrhythmias. Otherwise no changes. Exam Vital Signs (past 8 hours): - 07/18/22 04:39 07/18/22 04:39 07/18/22 07:25 Temperature 97.2 F L 97.4 F L Pulse Rate 66 75 Respiratory Rate 17 18 Blood Pressure 129/85 130/88 Pulse Oximetry 99 96 Oxygen Flow Rate 0 0 Oxygen Delivery Method Room Air Oxygen Flow Rate 0 Narrative Exam Narrative: Alert male in no acute distress smiling interactive moving around room. HEENT exam is unremarkable neck supple without adenopathy or JVD. Lungs are clear. Heart regular rate and rhythm. No significant change. Extremities without edema. Neurologic exam shows continued mild left hand strip catcher weakness. Objective Labs Result Diagrams: 07/18/22 05:41 07/18/22 05:41 Labs: Laboratory Results - last 24 hr 07/16/22 07/16/22 07/17/22 20:35 20:35 02:16 Hgb Hct Plt Count APTT 165 H* D Sodium Potassium Chloride Carbon Dioxide BUN Creatinine Estimated GFR BUN/Creatinine Ratio Glucose Calcium Total Bilirubin AST ALT Alkaline Phosphatase Total Protein Albumin Globulin Albumin/Globulin Ratio Urine Color Lt. yellow Urine Appearance Clear Urine pH 6.0 Ur Specific [place] 1.010 Urine Protein Negative Urine Glucose (UA) Negative Urine Ketones Negative Urine Occult Blood Negative Urine Nitrate Negative Urine Bilirubin Negative Urine Urobilinogen 1.0 Ur Leukocyte Esterase Negative Urine RBC None seen Urine WBC 0-1/hpf Ur Squamous Epith Cells 0-1 /hpf Urine Bacteria None seen Ur Culture Indicated? Cult not indicated U Opiates 300ng/mL cut Negative Ur Oxycodone Screen Negative Urine Methadone Screen Negative Ur Barbiturates Screen Negative U Tricyclic Antidepress Negative Ur Phencyclidine Scrn Negative Ur Amphetamines Screen Negative U Methamphetamines Scrn Negative Ur MDMA Scrn (Ecstasy) Negative U Benzodiazepines Scrn Negative Urine Cocaine Screen Negative U Marijuana (THC) Screen Negative 07/17/22 07/17/22 07/18/22 15:32 20:20 02:09 Hgb Hct Plt Count APTT 74 H* D 60 H D 49 H D Sodium Potassium Chloride Carbon Dioxide BUN Creatinine Estimated GFR BUN/Creatinine Ratio Glucose Calcium Total Bilirubin AST ALT Alkaline Phosphatase Total Protein Albumin Globulin Albumin/Globulin Ratio Urine Color Urine Appearance Urine pH Ur Specific [place] Urine Protein Urine Glucose (UA) Urine Ketones Urine Occult Blood Urine Nitrate Urine Bilirubin Urine Urobilinogen Ur Leukocyte Esterase Urine RBC Urine WBC Ur Squamous Epith Cells Urine Bacteria Ur Culture Indicated? U Opiates 300ng/mL cut Ur Oxycodone Screen Urine Methadone Screen Ur Barbiturates Screen U Tricyclic Antidepress Ur Phencyclidine Scrn Ur Amphetamines Screen U Methamphetamines Scrn Ur MDMA Scrn (Ecstasy) U Benzodiazepines Scrn Urine Cocaine Screen U Marijuana (THC) Screen 07/18/22 07/18/22 07/18/22 05:41 05:41 08:04 Hgb 15.0 Hct 43.7 Plt Count 201 APTT 54 H Sodium 139 Potassium 3.1 L Chloride 102 Carbon Dioxide 27 BUN 20 Creatinine 0.65 L Estimated GFR > 60 BUN/Creatinine Ratio 30.8 H Glucose 90 Calcium 8.6 Total Bilirubin 1.1 AST 21 ALT 15 Alkaline Phosphatase 58 Total Protein 6.3 Albumin 3.5 Globulin 2.8 Albumin/Globulin Ratio 1.3 Urine Color Urine Appearance Urine pH Ur Specific [place] Urine Protein Urine Glucose (UA) Urine Ketones Urine Occult Blood Urine Nitrate Urine Bilirubin Urine Urobilinogen Ur Leukocyte Esterase Urine RBC Urine WBC Ur Squamous Epith Cells Urine Bacteria Ur Culture Indicated? U Opiates 300ng/mL cut Ur Oxycodone Screen Urine Methadone Screen Ur Barbiturates Screen U Tricyclic Antidepress Ur Phencyclidine Scrn Ur Amphetamines Screen U Methamphetamines Scrn Ur MDMA Scrn (Ecstasy) U Benzodiazepines Scrn Urine Cocaine Screen U Marijuana (THC) Screen [facility] Medical History Abnormal EKG Elevated PSA Essential hypertension Hemorrhoid (~1994) Lower extremity edema Mixed hyperlipidemia Shortness of breath at rest Surgical History Anesthesia History of eye surgery History of tonsillectomy (~1964) Family History Mother Cancer Father CAD (coronary artery disease) Sister Cancer Grandmother Stroke Grandmother Hemorrhage Social History household members: spouse Smoking Status: Former smoker Tobacco: How many years used: 15 alcohol intake: current substance use type: does not use Assessment & Plan Assessment & Plan narrative: Hyponatremia. Patient otherwise doing well. Will replace with p.o. today. Also decreasing Lasix today so will see how things go. Recheck a.m.. Congestive heart failure severe. Tele was stable. Feeling well. Lasix will be cut back to 20 patient had pretty significant diuresis yesterday and I think we do not need that much Lasix. Feeling well. Having no other symptoms. Started low-dose losartan yesterday. Blood pressure was a little lower this morning but it was lower yesterday morning also. We will have to watch given the need to protect his brain. Otherwise waiting for Cardiology. For decision on what comes next. Certainly will need cardiology evaluation. Will significant changes. In this otherwise male with no real symptoms at this time. Right-sided cerebral infarctions. Needs PT. But would like to have Cardiology input before we start that. Blood pressure is on the lower side will have to see if it persists with that we may need to discontinue losartan. Yesterday was low in the morning also. So how to just watch and see how it goes. Otherwise he seems stable. Source appears to be from clot in left ventricle. On heparin. Will continue. Hypertension. At this point blood pressure looks excellent. No change at this time. Do not want to be aggressive with blood pressure control given stroke. Code status full. DVT prophylaxis on heparin Disposition. Continue diuresis heparin and Lasix. Awaiting web production artist evaluation tomorrow. Appears stable otherwise at this time. 35 minutes spent with patient answering questions, dictation, orders, chart review. Time Spent With Patient Critical Care time: I spent a total of [] minutes of critical care time on this patient's care today; this time is exclusive of procedural time. Quality VTE Deep Vein Thrombosis/Pulmonary Embolism Present on Admission: No
[2022-07-18] MEDS: ASPIRIN 325 MG TABLET PO (09:45)
[2022-07-18] MEDS: LOSARTAN 25 MG TABLET 12.5 MG PO (09:45)
[2022-07-18] MEDS: POTASSIUM CHLORIDE 20 MEQ TAB 40 MEQ PO ×3 (09:46→21:32)
[2022-07-18] MEDS: SODIUM CHLORIDE 0.9% FLUSH 10 ML IV ×2 (09:47→21:33)
[2022-07-18] MEDS: FUROSEMIDE 40 MG/4 ML VIAL 20 MG IV (09:47)
--- NOTE | 2022-07-18 10:22 | PC.NURSE ---
Day shift: Dr Grimes made aware of 6 beat run of v-tach that occured at approx 1000. Talked to Dr Grimes by phone at approx 1020. No new orders. Dr Grimes said he will call tank insulator rubber.
[2022-07-18] MEDS: METOPROLOL ER 25 MG TABLET 12.5 MG PO (10:50)
--- NOTE | 2022-07-18 19:15 | PC.NURSE ---
Day shift: At approx 1905 Pt c/o not feeling well. Place in supine postion and VS taken. VS WNL and RA 97%. He remains A&Ox4. He has been awake all day. Watched football games with family. Chantell nassar has him getting up to BR often. Explained to Pt he is likely very tired. No tele changes at this time as well. Will report this to NOC shift RN.
[2022-07-18] MEDS: ATORVASTATIN 20 MG TABLET PO (21:32)
[2022-07-18] MEDS: HEPARIN DRIP 25,000 UNIT/500 ML IV.SOLN 16 UNIT IV (21:33)
[2022-07-19 00:46] VITALS: BP 138/88; PULSE 89; RESP 17; TEMP 36.8; O2SAT 96
[2022-07-19 04:16] VITALS: BP 128/88; PULSE 88; RESP 18; TEMP 37.1; O2SAT 95
[2022-07-19 06:38] LABS: Hematocrit 46.7 % (41-53); Hemoglobin 15.9 g/dL (13.5-17.5); Platelet Count 224 X10^3/uL (150-400)
[2022-07-19 06:42] LABS: PTT Partial Thromboplastin Tim 45 SECONDS (26-36)
[2022-07-19 06:46] LABS: Alanine Aminotransferase 15 IU/L (<50); Albumin 3.7 g/dL (3.5-5.0); Albumin Globulin Ratio 1.2 (1.0-2.8); Alkaline Phosphatase 58 U/L (38-126); Aspartate Aminotransferase 22 IU/L (17-59); BUN Creatinine Ratio 31.7 (6-22); Bilirubin Total 1.7 mg/dL (0.2-1.3); Blood Urea Nitrogen 19 mg/dL (9-20); Calcium 8.7 mg/dL (8.4-10.2); Carbon Dioxide 23 mmol/L (22-32); Chloride 104 mmol/L (98-107); Estimated Glomerular Filt Rate > 60 mL/min (>60); Glucose 132 mg/dL (80-110); HEMOLYSIS < 15 (0-50); Magnesium 1.9 mg/dL (1.6-2.3); Sodium 137 mmol/L (137-145); Total Protein 6.7 g/dL (6.3-8.2)
[2022-07-19 06:49] LABS: BUN Creatinine Ratio 30.6 (6-22); Blood Urea Nitrogen 19 mg/dL (9-20); Calcium 8.7 mg/dL (8.4-10.2); Carbon Dioxide 22 mmol/L (22-32); Chloride 106 mmol/L (98-107); Estimated Glomerular Filt Rate > 60 mL/min (>60); Glucose 133 mg/dL (80-110); HEMOLYSIS < 15 (0-50); Sodium 137 mmol/L (137-145)
--- NOTE | 2022-07-19 07:27 | P.PN_ITS ---
Subjective Subjective Date Patient Seen: 07/19/22 Time Patient Seen: 07:28 Interval history: 77-year-old seen by me on 3 occasions over the last 2 years after being lost for approximately a decade. He has been quite hypertensive for quite some time and been very hesitant to treating it with antihypertensive medication. He has been quite resistant to all medication. I discussed his current care with Dr. Grimes who manage his care over the weekend. He presented with stroke-like symptoms on Tuesday the and while the symptoms drastically improved, he did show evidence of acute/subacute abnormalities within the right cerebral hemisphere consistent with infarction in 2 separate locations. His echocardiogram was much more remarkable demonstrating a severely dilated left ventricle with evidence probable prior significant infarction in a PDA dis tribution. There was apparent thrombus along the anterior septal wall with an ejection fraction estimated about 10%. There is also stage III diastolic dysfunction. Apparently cardiology was contacted who recommended he be anticoagulated with unfractionated heparin and started on afterload reduction. Because of his acute/subacute CVA they did not feel like he was a candidate for intervention im mediately. Obviously he will need a coronary catheterization noted probably benefit from AICD placement Patient was also diuresed as he did present with evidence acute systolic base congestive heart failure. This created some hypokalemia which is now been resolved. He also has had some cardiac dysrhythmia with limited runs of ventricular tachycardia. He was started on beta-hermes therapy yesterday. He has been modestly hypotensive first things in the morning but thus far seems to be tolerating medication without difficulty. His neurologic symptoms continued to be vastly improved fortunately. He continues mostly left-sided hand symptoms Patient has been appropriately started on lipid lowering therapy for stroke risk reduction as well with atorvastatin. Exam Vital Signs (past 8 hours): - 07/18/22 23:30 07/19/22 00:46 07/19/22 04:16 Temperature 99.0 F 98.2 F 98.8 F Pulse Rate 89 88 Respiratory Rate 17 18 Blood Pressure 138/88 128/88 Pulse Oximetry 96 95 Oxygen Flow Rate 0 0 Oxygen Delivery Method Room Air Oxygen Flow Rate 0 Objective Labs Result Diagrams: 07/19/22 05:40 07/19/22 05:40 Labs: Laboratory Results - last 24 hr 07/18/22 07/19/22 07/19/22 08:04 05:40 05:40 Hgb Hct Plt Count APTT 54 H Sodium 137 137 Potassium 4.0 4.0 Chloride 106 104 Carbon Dioxide 22 23 BUN 19 19 Creatinine 0.62 L 0.60 L Estimated GFR > 60 > 60 BUN/Creatinine Ratio 30.6 H 31.7 H Glucose 133 H 132 H Calcium 8.7 8.7 Magnesium Total Bilirubin 1.7 H AST 22 ALT 15 Alkaline Phosphatase 58 Total Protein 6.7 Albumin 3.7 Globulin 3.0 Albumin/Globulin Ratio 1.2 07/19/22 07/19/22 07/19/22 05:40 05:40 05:40 Hgb 15.9 Hct 46.7 Plt Count 224 APTT 45 H D Sodium Potassium Chloride Carbon Dioxide BUN Creatinine Estimated GFR BUN/Creatinine Ratio Glucose Calcium Magnesium 1.9 Total Bilirubin AST ALT Alkaline Phosphatase Total Protein Albumin Globulin Albumin/Globulin Ratio [facility] Medical History Abnormal EKG Elevated PSA Essential hypertension Hemorrhoid (~1994) Lower extremity edema Mixed hyperlipidemia Shortness of breath at rest Surgical History Anesthesia History of eye surgery History of tonsillectomy (~1964) Family History Mother Cancer Father CAD (coronary artery disease) Sister Cancer Grandmother Stroke Grandmother Hemorrhage Social History household members: spouse Smoking Status: Former smoker Tobacco: How many years used: 15 alcohol intake: current substance use type: does not use Assessment & Plan Assessment & Plan narrative: 1. CVA-patient's symptoms are improving. We have a source of emboli with the cardiac thrombus. Current guidelines still recommend introduction of lipid lowering therapy for this indication (also indicated given his apparent coronary artery disease). Continue with atorvastatin for now. I would think that anti- platelet therapy (question Plavix verses aspirin) would also be indicated no matter what form of anticoagulation is utilized for his ventricular thrombus. He is already on aspirin but wonder whether Plavix might be more appropriate for both a cardiac and neurologic indication. 2. Cardiac-patient demonstrating severe cardiomyopathy with interventricular thrombus and evidence of almost certainly obstructive coronary artery disease. He is on afterload reduction (with an ARB given his prior reaction to lisinopril), has been treated for acute congestive heart failure. He is not hypoxic but still very breathless with activity. Unsure whether this is more secondary to his very poor ejection fraction or some persistent acute congestive heart failure. Will continue with furosemide but will switch from IV to an oral version. He remains anticoagulated with heparin although this could probably be switched to a direct oral anticoagulant in my opinion, depending on timing presumed need for cardiac catheterization. He clearly will need a cardiac catheterization for assessment of coronary artery disease and I would think would be a candidate for AICD placement. He has already demonstrated significant ventricular dysrhythmias as above, and is at r isk of course given his severe cardiomyopathy. Patient also demonstrated some ventricular tachycardia is had persistent, but rare 5 and 6 beat runs of VT. Tolerating metoprolol okay maybe a minor re duction in overall frequency of dysrhythmia. Continue telemetry for now, no change in medication from my standpoint today. However further cardiac care will be as per Cardiology who I understand will be seeing patient as an in-person consultation here in the hospital today. Obviously patient with significant cardiac issues will require some expertise in managing his various medications to help maximize his cardiac function reduce his risk etcetera. 3. Renal/electrolytes-patient's electrolytes are much improved. Potassium and magnesium are normalized. Renal function normal. Continue with current medication without change. Plan to recheck his electrolytes tomorrow. On fairly high dose potassium replacement while on losartan (even though very low- dose losartan) 4. Hypertension-patient's blood pressure adequately controlled on current medication. Patient obviously moving forward will need to be much more aggressive about treating his underlying hypertension and other issues 5. History of positive fit test-patient has been reluctant to undergo further testing regarding this. Positive fit test was in 2020. He is going to need to be anticoagulated for some period of time and if there is some other underlying colonic issue (for example polyps or colon cancer) anticoagulation may well unmask that as well. Depending on timing of anticoagulation will definitely need follow-up colonic evaluation but perhaps waiting until he is off anticoagulation would make more sense given his delayed to this point already. Note: Greater than 30 minutes total time was spent on day of service, evaluating the patient on the floor, including examining the patient, discussing clinical course with clinical and nursing staff, reviewing clinical course in the computer, preparing documentation and writing orders for continued management of care, discussing status with family as appropriate, reviewing plans for the next 24 hours with both patient/family and nursing staff as appropriate. Time Spent With Patient Critical Care time: I spent a total of [] minutes of critical care time on this patient's care t debbie; this time is exclusive of procedural time. Quality VTE Deep Vein Thrombosis/Pulmonary Embolism Present on Admission: No
[2022-07-19 07:51] VITALS: BP 122/83; PULSE 89; RESP 20; TEMP 36.7; O2SAT 98
--- NOTE | 2022-07-19 08:30 | PC.NURSE ---
Addendum entered by Silvia Bennett R.N. 07/19/22 18:20: Called Dr. Dominguez. He will come and see patient tomorrow but wants Dr. Bey to call and give report on patient to him in the morning. Addendum entered by Silvia Bennett R.N. 07/19/22 17:52: Patient is resting and visiting with his daughter and . is hard of hearing, so we have to speak up for her. Patient denies pain or discomfort and is watching television. Addendum entered by Silvia Bennett R.N. 07/19/22 15:28: Patients PT 46, heparin gtt increased to 18ml/hr, which is 900u/hr. IV changed to l.hand and this is working well. Original iv site is in r., this was causing the iv pump to beap. Patient is now resting and denies pain. Addendum entered by Silvia Bennett R.N. 07/19/22 10:22: Family asking for new hats in the toilet after patient has a bowel movement every time. Explained to patient and family that this RN will give them one new hat. said that staff has been doing new ones each time. Explained that we will clean it off every time and he will use it multiple times while he is here. Family anxious but nice, this RN also printed all new medication lists and info so that they can read material. Original Note: Patient is alert and oriented x4, his only deficit noted from CVA is that his l.hand is weak and his validation intern is slow. He denies any numbness or tingling to arm. Vision is wnl, patient is able to lift each leg up without difficulty and his speech is clear. Heparin drip is infusing at 17 and patient will have another PTT drawn at 1200. is in room, she writes everything down and asks questions alot regarding patients condition. She is pleasant and cooperative with patient and staff.
[2022-07-19] MEDS: ASPIRIN 325 MG TABLET PO (09:07)
[2022-07-19] MEDS: METOPROLOL ER 25 MG TABLET 12.5 MG PO (09:07)
[2022-07-19] MEDS: FUROSEMIDE 20 MG TABLET PO (09:07)
[2022-07-19] MEDS: LOSARTAN 25 MG TABLET 12.5 MG PO (09:07)
[2022-07-19] MEDS: POTASSIUM CHLORIDE 20 MEQ TAB 40 MEQ PO ×3 (09:10→21:55)
--- NOTE | 2022-07-19 10:51 | OT.IP.EVAL ---
Current Diagnoses Cerebral infarction, unspecified (07/16/22) Past Medical History (Last Reviewed 07/16/22 @ 12:36 by Chetna Henning DO) Abnormal EKG Elevated PSA Essential hypertension Hemorrhoid (~1994) Lower extremity edema Mixed hyperlipidemia Shortness of breath at rest Surgical History (Last Reviewed 07/16/22 @ 12:36 by Chetna Henning DO) Anesthesia History of eye surgery History of tonsillectomy (~1964) Occupational Therapy Inpatient Evaluation/Re-Eval M1 PT/OT-IP Prior Functional Status Start: 07/17/22 11:53 Freq: NEEDED Status: Active Protocol: Document 07/19/22 12:14 CGR (Rec: 07/19/22 12:24 CGR [id number]) Medical Review Prior Functional Status Medical History Reviewed Yes Communication able to make needs known Mobility and Gait pt stated that he is independent with all mobilities and ambulation without AD Activities of Daily Living and IADL's Pt states that he is IND in all ADLs Prior Functional Level (Other details) Pt states he works out with weights 3 times a week Social History Household Members spouse Living Arrangements Assisted Living Number of Floors (Floors) One Floor Number of Stairs To Enter/Railing? pt lives at [facility]: lives at the 3rd floor apartment with an elevator to get to their floor 1 level apartment and no steps to enter Home Environment High Toilet,Walk in Shower, Built-In Shower Seat Home Equipment Hand Held Shower,Grab Bars Near Toilet,Grab Bars In Shower Employment Status Retired M2 OT-IP Current Condition Start: 07/19/22 12:14 Freq: Status: Active Protocol: Document 07/19/22 12:14 CGR (Rec: 07/19/22 12:24 CGR [id number]) Occupational Therapy Current Condition Current Condition Evaluation Date 07/19/22 Treatment Diagnosis L arm weakness, R subacute infarts, CHF, EF 10% Diagnosis Onset Date 07/16/22 M3 OT- IP Subjective and Pain Start: 07/19/22 12:14 Freq: Status: Active Protocol: Document 07/19/22 12:14 CGR (Rec: 07/19/22 12:24 CGR [id number]) OT- Subjective Occupational Therapy Visit Type Type Initial Evaluation Visit Start Time 10:11 Visit Stop Time 10:51 Total Visit Minutes 40 OT Pain Assessment Pain When Pain Assessed At Rest Pain Present Pain Present Denied Pain M4 OT- IP ADL's Start: 07/19/22 12:14 Freq: Status: Active Protocol: Document 07/19/22 12:14 CGR (Rec: 07/19/22 12:24 CGR [id number]) OT [id number] Comments OT Self-Feeding Comments not meal time OT ADL-Grooming Comments OT Grooming Comments not performed, pt declined OT ADL-Oral Care Comments Oral Care Comments not performed, pt declined OT ADL-Dressing General Eval Lower Body Dressing Ability Independent Areas Needing Assistance Socks OT ADL-Toileting General Evaluation Toileting Ability Independent Comments OT Toileting Comments simulated seated on toielt OT ADL-Bathing Comments OT Bathing Comments not performed M5 OT- IP IADL's Start: 07/19/22 12:14 Freq: Status: Active Protocol: Document 07/19/22 12:14 CGR (Rec: 07/19/22 12:24 CGR [id number]) OT-Instrumental Activities of Daily Living Deficits IADL Deficits Identified No Deficits Home Safety Awareness Awareness of Need for Assistance at Home Good Awareness Ability to Problem Solve Emergency Able to Problem Solve Situations Medication Management Medication Management No Deficits Identified Money Management Money Management No Deficits Identified Meal Preparation Meal Preparation No Deficits Identified Legal Services Manager Legal Services Manager No Deficits Identified Driving Driving Comments 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 He has had 2 sx to fix it but it appears to be getting worse. M7 OT- IP Mobility and Balance Start: 07/19/22 12:14 Freq: Status: Active Protocol: Document 07/19/22 12:14 CGR (Rec: 07/19/22 12:24 CGR [id number]) OT- Bed Mobility Assessment Supine to Sit Supine to Sit Assist Independent Sit to Supine Sit to Supine Assist Independent Scooting Scooting to Edge of Bed Independent OT-Transfer Assessment Sit to and From Stand Sit to and from Stand Independent Transfers Transfer Ability Independent Technique Transfer Destination Bed,Toilet Transfer Technique Stand Step Pivot Devices Transfer Assistive Devices None Comments Mobility Comments Pt ambulated to bathroom and back to bed. One LOB but pt was able to catch himself without difficulty. OT- Balance Assessment Sitting Balance and Reactions Static Sitting Balance Ability Normal Dynamic Sitting Balance Ability Normal M8 OT- IP Objective Assessments Start: 07/19/22 12:14 Freq: Status: Active Protocol: Document 07/19/22 12:14 CGR (Rec: 07/19/22 12:24 CGR [id number]) OT Gross Range of Motion Upper Extremity Range of Motion Assessment Within Functional Limits OT Strength Upper Extremity Strength Assessment Left Impaired Shoulder 5/5 Elbow 5/5 Hand 5/5 to the R hand, 4-/5 to L hand OT- Coordination Assessment Upper Extremity Finger to Nose Test Within Functional Limits Finger Tapping Test Left UE Impaired Comments Coordination Comments Pt with deficits to fine motor coordination on his L side OT-Muscle Tone Assessment Muscle Tone WNL Yes OT Sensation Assessment Comments Summary Comments Pt's sensation is typical Edema Edema Absent M9 OT- IP Assessment and Plan Start: 07/19/22 12:14 Freq: Status: Active Protocol: Document 07/19/22 12:14 CGR (Rec: 07/19/22 12:24 CGR [id number]) OT Summary Assessment and Plan Potential Rehabilitation Potential Excellent Analytic Complexity at Evaluation Low Summary OT Impairments Strength,Coordination Progress Towards Goals Safe For Discharge,Goals Met Assessment Summary Pt presents as a low complexity evaluation s/p admit for R sub acute CVA. Pt displays weakness and poor coordination to the L hand but otherwise is at his baseline. Pt will benefit from outpatient OT services from a hand specialist. Pt was provided with theraputty and handouts for SOB, energy conservation, and use of theraputty. No further acute needs. Frequency of Treatment Frequency Of Treatment Discharge Discharge Recommendations OT Discharge Recommendations Home Other Discharge Recommendations out patient Ot hand specialist Transportation Needs at Discharge Private Vehicle
[2022-07-19 11:00] VITALS: PULSE 80; RESP 19; TEMP 36.6; O2SAT 97
--- NOTE | 2022-07-19 13:08 | CM.DPC ---
DCP Cont: Patient is not yet medically stable for discharge as of yet, having cardiac issues, low ejection fraction. Called Neela at [facility] and confirmed that he is an independent resident at their facility. He resides with spouse, Karolina. Neela asked for updates in case care needs change. P: DCP to continue to follow for needs. Patient should be able to return to [facility] when deemed medically stable. Taina Montanez RN/Senior Ios Developer
[2022-07-19 13:58] LABS: PTT Partial Thromboplastin Tim 46 SECONDS (26-36)
[2022-07-19 19:00] VITALS: BP 104/73; PULSE 73; RESP 17; TEMP 36.3; O2SAT 98
[2022-07-19 20:01] LABS: PTT Partial Thromboplastin Tim 64 SECONDS (26-36)
[2022-07-19] MEDS: ATORVASTATIN 20 MG TABLET PO (21:55)
[2022-07-19] MEDS: SODIUM CHLORIDE 0.9% FLUSH 10 ML IV (21:56)
[2022-07-19 23:00] VITALS: BP 126/83; PULSE 76; RESP 18; TEMP 36; O2SAT 99
[2022-07-20] VITALS (8 sets, daily range): BP systolic 115–135; BP diastolic 56–95; PULSE 67–84; RESP 16–20; TEMP 36.1–36.8; O2SAT 98–100
[2022-07-20] MEDS: HEPARIN DRIP 25,000 UNIT/500 ML IV.SOLN 18 UNIT IV (04:37)
[2022-07-20 06:46] LABS: Blood Urea Nitrogen 18 mg/dL (9-20); Calcium 9.2 mg/dL (8.4-10.2); Carbon Dioxide 20 mmol/L (22-32); Chloride 105 mmol/L (98-107); Estimated Glomerular Filt Rate > 60 mL/min (>60); Glucose 117 mg/dL (80-110); HEMOLYSIS < 15 (0-50); Magnesium 2.1 mg/dL (1.6-2.3); Sodium 137 mmol/L (137-145)
[2022-07-20 06:47] LABS: Potassium 5.3 mmol/L (3.4-5.1)
[2022-07-20 06:50] LABS: NT-proBNP (BNP-Adult 18+) 9170 pg/mL (<450)
--- NOTE | 2022-07-20 07:00 | PM.PN.1 ---
Subjective Subjective Date Patient Seen: 07/20/22 Time Patient Seen: 07:01 Interval history: Patient essentially unchanged. No additional symptoms. Still very fatigued. Was not seen by Cardiology yesterday despite my being told by covering provider that he would talked with Cardiology himself and they were planning to see him on Tuesday. I will have to reach out to Cardiology myself today Potassium is a bit on the high side with his supplementation. He dip low with the IV Lasix which is been transferred to oral Lasix now Continues on unfractionated heparin infusion Continues to complain of intermittent dyspnea primarily happening at night he wakes up and feels like he can not catch his breath. He is slows down his breathing tries to breathe from his abdomen I think in the process he sits up and he feels better pretty rapidly. He is not been up out of bed apparently he still on restrictions, although I do not see that in his orders Exam Vital Signs (past 8 hours): - 07/20/22 03:00 Temperature 97.3 F L Pulse Rate 80 Respiratory Rate 20 Blood Pressure 120/95 H Pulse Oximetry 98 Oxygen Flow Rate 0 Oxygen Delivery Method Room Air Oxygen Flow Rate 0 Objective Labs 07/19/22 05:40 07/20/22 06:08 Labs: Laboratory Results - last 24 hr 07/19/22 07/19/22 07/20/22 12:50 19:25 06:08 APTT 46 H 64 H D Sodium 137 Potassium 5.3 H D Chloride 105 Carbon Dioxide 20 L BUN 18 Creatinine 0.72 Estimated GFR > 60 BUN/Creatinine Ratio 25.0 H Glucose 117 H Calcium 9.2 Magnesium 2.1 NT-Pro-B Natriuret Pep 9170 H [facility] Medical History Abnormal EKG Elevated PSA Essential hypertension Hemorrhoid (~1994) Lower extremity edema Mixed hyperlipidemia Shortness of breath at rest Surgical History Anesthesia History of eye surgery History of tonsillectomy (~1964) Family History Mother Cancer Father CAD (coronary artery disease) Sister Cancer Grandmother Stroke Grandmother Hemorrhage Social History household members: spouse Smoking Status: Former smoker Tobacco: How many years used: 15 alcohol intake: current substance use type: does not use Assessment & Plan Assessment & Plan narrative: 1. CVA-patient's symptoms are improving. Will need outpatient hand physical therapy. Continue to consider Plavix versus aspirin. Symptoms really did not involve his gait or ability to walk. No reason he can not ambulate as tolerated from a neurologic standpoint 2. Cardiac-patient seems relatively stable from a cardiac standpoint. I think he is trying to tell me symptoms that are consistent with a paroxysmal nocturnal dyspnea kind of presentation or some mild orthopnea. He is not been hypoxic enough long enough for us to actually measure that. I am going to go back and increase his diuretic therapy from 20 mg of furosemide orally to 40 mg. See if that makes things somewhat better. Again need Cardiology input regarding his various issues and will reach out to the local cardiology clinic for direction hopefully they can see patient in the hospital today but if not at least provide direction for delete outpatient follow-up. I would advocate switching him to a direct oral anticoagulant and probably discharging him while planning for outpatient cardiac catheterization and possible AICD placement. Will also be interesting to see how he does physically up and around walking a bit. 3. Renal/electrolytes-potassium elevated likely secondary to his vigorous oral replacement. I think this can be diminished significantly given that we switched him from IV Lasix to low-dose oral Lasix. Continue to monitor for now. Renal function remains normal. 4. Hypertension-patient's blood pressure adequately controlled on current medication. No changes. Note: Greater than 30 minutes total time was spent on day of service, evaluating the patient on the floor, including examining the patient, discussing clinical course with clinical and nursing staff, reviewing clinical course in the computer, preparing documentation and writing orders for continued management of care, discussing status with family as appropriate, reviewing plans for the next 24 hours with both patient/family and nursing staff as appropriate. COVID-19 COVID-19 status: Negative Result date/Date tested (Pos, Neg/Pending): 07/16/22 Quality VTE Deep Vein Thrombosis/Pulmonary Embolism Present on Admission: No
[2022-07-20 08:04] LABS: PTT Partial Thromboplastin Tim 51 SECONDS (26-36)
[2022-07-20] MEDS: ASPIRIN 325 MG TABLET PO (08:54)
[2022-07-20] MEDS: LOSARTAN 25 MG TABLET 12.5 MG PO (08:55)
[2022-07-20] MEDS: METOPROLOL ER 25 MG TABLET 12.5 MG PO ×2 (08:56→21:52)
[2022-07-20] MEDS: SODIUM CHLORIDE 0.9% FLUSH 10 ML IV ×2 (08:57→21:55)
[2022-07-20] MEDS: FUROSEMIDE 40 MG TABLET PO (08:57)
--- NOTE | 2022-07-20 11:51 | CM.DPNOTE ---
Addendum entered by Taina Montanez R.N. 07/20/22 14:10: Confirmed that patient has already worked with P.T, and O.T, and completed services. Original Note: DCP Cont: Attempted to reach Dr. Bey to see if patient is appropriate for P.T, since he has not been out of bed, and want to ensure that patient can go back to independent living at [facility]. Will attempt to get in touch with him again later. P: DCP to continue to follow closely to see if can have P.T, since patient resides in the independent living department at [facility]. Taina Montanez RN/Operations Representative
--- NOTE | 2022-07-20 13:16 | PM.CN ---
History of Present Illness Consult details Chief complaint: Left arm paralyzed, spasms, sudden onset Narrative: 77 yo M admitted with left arm weakness from newly diagnosed stroke. Echo showed newly diagnosed HF. Patient states that he was quite active until about a month ago. At baseline, he can climb up 2-3 flights of stairs without any issue. However, he has had worsening dyspnea over the past month. He has noted dyspea with walking 10 feet or event his ADLs. He also reports paroxysmal nocturnal dyspnea and some leg edema but denies weight gain. Denies chest pain, heart racing sensations, lightheadedness, or syncope. Meds Home Medications and Allergies Home Medications Medication Instructions Recorded Confirmed Type furosemide 20 mg tablet 20 mg PO DAILY #30 tabs 07/08/22 07/17/22 Rx Allergies Allergy/AdvReac Type Severity Reaction Status Date / Time lisinopril AdvReac Intermediate hyperkalemi Verified 07/19/22 07:22 a Review of Systems Review of Systems Narrative: per HPI and otherwise unremarkable Exam Vital Signs (past 8 hours): - 07/20/22 07:00 07/20/22 08:55 07/20/22 08:56 Temperature 97.7 F Pulse Rate 84 84 84 Respiratory Rate 16 Blood Pressure 135/88 135/88 135/88 Pulse Oximetry 99 Oxygen Flow Rate 0 07/20/22 11:00 07/20/22 11:00 Temperature 98.2 F Pulse Rate 80 80 Respiratory Rate 18 Blood Pressure 120/79 120/79 Pulse Oximetry 100 Oxygen Flow Rate 0 Oxygen Delivery Method Room Air Oxygen Flow Rate 0 Narrative Exam Narrative: Gen norberto: NAD, elderly HEENT: NCAT, no scleral icterus, neck supple CV: RRR, distant heart sounds, no JVD, no leg edema Resp: Good aeration, CTAB Abd: soft, NT NEuro: no facial droop, 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 Psych: appropriate affect Skin: no rashes noted on arms, legs, or face Objective Labs 07/19/22 05:40 07/20/22 06:08 Labs: Laboratory Results - last 24 hr 07/19/22 07/19/22 07/20/22 12:50 19:25 06:08 APTT 46 H 64 H D Sodium 137 Potassium 5.3 H D Chloride 105 Carbon Dioxide 20 L BUN 18 Creatinine 0.72 Estimated GFR > 60 BUN/Creatinine Ratio 25.0 H Glucose 117 H Calcium 9.2 Magnesium 2.1 NT-Pro-B Natriuret Pep 9170 H 07/20/22 07:35 APTT 51 H D Sodium Potassium Chloride Carbon Dioxide BUN Creatinine Estimated GFR BUN/Creatinine Ratio Glucose Calcium Magnesium NT-Pro-B Natriuret Pep PFSH Medical History Abnormal EKG Elevated PSA Essential hypertension Hemorrhoid (~1994) Lower extremity edema Mixed hyperlipidemia Shortness of breath at rest Surgical History Anesthesia History of eye surgery History of tonsillectomy (~1964) Family History Mother Cancer Father CAD (coronary artery disease) Sister Cancer Grandmother Stroke Grandmother Hemorrhage Social History household members: spouse Tobacco & Substance Use Smoking Status: Former smoker Tobacco: How many years used: 15 alcohol intake: current substance use type: does not use Assessment & Plan Assessment & Plan narrative: # HFrEF: severely dilated LV with EF 10-15%. Etiology unclear but it could be ischemic or idiopathic. Wtih diuresis, he is now able to lay flat without any dyspnea. Patient is NYHA class IIIb and probably euvolemic on exam today. Plan: - Increase metoprolol XL from 12.5mg daily to 12.5mg bid - Continue losartan 12.5mg daily - Start spironolactone 12.5mg daily once potassium <=5.0. Patient's potassium got over corrected with potassium supplementation. - Continue furosemide 40mg daily for now - Ischemia evaluation as outpatient - If EF remains less than 35% on 3 months of maximal tolerated HF meds, patient will be considered for AICD implantation # LV thrombus: noted on Echo. - Switch from IV heparin to eliquis 5mg bid # Stroke: etiology probably cardioembolic. Thank you for the interesting consultation. Cardiology will see the patient as outpatient. Time Spent With Patient Critical Care time: I spent a total of [] minutes of critical care time on this patient's care today; this time is exclusive of procedural time.
[2022-07-20] MEDS: APIXABAN 5 MG TABLET PO ×2 (14:34→21:54)
--- NOTE | 2022-07-20 15:19 | PC.NURSE ---
Addendum entered by Ariane Lopez R.N. 07/20/22 17:05: Shower today. Original Note: Day shift note: Dr. Orellana at bedside this afternoon. Heparin gtts stopped. Eliquis PO started BID. Cardiac meds adjusted. Patient ambulatory. NO c/o CP. Mod SOB with activity, mild at rest. O2 sat 98% on RA. Encouraging PO intake, poor appetite. SCDs in place while in bed. Spouse and daughter at bedside providing supportive care.
[2022-07-20] MEDS: ATORVASTATIN 20 MG TABLET PO (21:55)
[2022-07-21 02:00] VITALS: BP 117/76; PULSE 71; RESP 18; TEMP 36.1; O2SAT 96
[2022-07-21 05:24] VITALS: BP 122/85; PULSE 64; RESP 18; TEMP 36.2; O2SAT 99
[2022-07-21 06:38] LABS: BUN Creatinine Ratio 30.4 (6-22); Blood Urea Nitrogen 17 mg/dL (9-20); Calcium 8.5 mg/dL (8.4-10.2); Carbon Dioxide 19 mmol/L (22-32); Chloride 109 mmol/L (98-107); Estimated Glomerular Filt Rate > 60 mL/min (>60); Glucose 94 mg/dL (80-110); HEMOLYSIS < 15 (0-50); Potassium 3.8 mmol/L (3.4-5.1); Sodium 137 mmol/L (137-145)
--- NOTE | 2022-07-21 07:13 | PM.DS.1 ---
History of Present Illness History of Present Illness Date Patient Seen: 07/21/22 Time Patient Seen: 07:13 Chief complaint: Left arm paralyzed, spasms, sudden onset Narrative: Pt is a 77yo man with HTN and hyperlipidemia who presented with acute left arm weakness.? The pt reports that around 12pm today he was taking the garbage to the disposal area at [facility] when he noted his left arm trembling uncontrollably.? The left hand was tensed into a near fist and he was unable to move his fingers well.? He went back to his apartment, and his brought him straight to the ED for evaluation.? The pt denies any associated chest pain, other focal weakness, or neck pain.? He states he has never had anything similar happen in the past.? The pt has had increasing SOB over the past month.? He states that he now frequently wakes in the night feeling SOB, and has to stand up for it to resolve.? He has had mild LE edema as well.? He denies any recent cough, fever.? He was evaluated by Dr Arce on 07/08/22.? With concern for CHF, echo, stress test, CXR, and labs were ordered.? CXR and CBC were reassuring.? The pt believes his stress test was completed, however results not viewable in our system. In the ED today, the pt was noted to have an NIH stroke scale of 2.? Lab work showed an elevated BNP but was otherwise reassuring.? CTA of head with bolus push of contrast was reassuring.? MRI completed showed 2 small subacute infarcts in the right hemisphere.?{from Dr. Rashid's H&P 07/16/2022} Discharge Providers Provider Date of admission: 07/16/22 14:38 Discharge Date: 07/21/22 Primary care physician: Lauri Bey MD Consults: 07/16/22 16:18 Consult to Occupational Therapy Evaluate & Treat Comment: Physician Instructions: Evaluate and treat Consult to Physical Therapy Evaluate & Treat Comment: Physician Instructions: Evaluate and Treat 07/17/22 17:39 Consult to Physician Routine Comment: Consulting Provider: Neelima Orellana Reason for consultation: severe chf Has provider been notified: Yes Discharge provider: Lauri Bey MD Summary Hospital Course Discharge Diagnosis: 1. Acute on chronic heart failure with reduced ejection fraction 2. 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 Severe cardiomyopathy with ejection fraction 10-15% 4. Interventricular thrombus 5. Ventricular tachycardia 6. Hypertension 7. Hyperlipidemia 8. Hypokalemia Hospital Course: Patient presented with above neurologic symptoms eventually found to be embolic with 2 foci on MRI. Source of emboli was felt to be an intracardiac thrombus. He was (after consultation with Cardiology over the phone) started on unfractionated heparin drip. This was eventually switched to a direct oral anticoagulant. Patient be managed by Cardiology regarding this clot. His neurologic symptoms vastly improved even during his ER evaluation. Still having some primary hand related symptoms would need outpatient hand therapy primarily (which is not available to that degree specificity as an inpatient) His cardiac evaluation while also demonstrating the intracardiac thrombus demonstrated a brand new cardiomyopathy with ejection fraction between 10 and 15%. Patient was felt to have some mild fluid overload as result of this or acute congestive heart failure. He was diuresed with parental furosemide then switched to oral furosemide. He had some hypokalemia that resolved with oral supplementation. He was started on the usual medications for patient with severe cardiomyopathy including afterload reduction and spironolactone. Was continued on oral diuretic therapy with furosemide. Did have some runs of nonsustained ventricular tachycardia. Beta-hermes therapy was initiated as well for this as well as his cardiomyopathy. This seem to be quite effective in reducing if not eliminating his cardiac dysrhythmia Patient was not hypoxic at any point during his hospitalization he was admitted complaining of some dyspnea with exertion. He was not orthopneic able to get up and walk around although with some fatigue and dyspnea. By time of discharge he is felt to be stable to be discharged home he will have an outpatient cardiac evaluation including cardiac catheterization and follow-up of his cardiomyopathy. If his cardiac function remains diminished maybe a candidate for AICD placement Patient had outpatient physical therapy for his remaining neurologic deficits primarily in his left arm and hand as above Patient's blood pressure is adequately controlled and his electrolytes are adequately replaced during this hospitalization. Will continue on medications for both Patient also started on statin therapy given his presentation with a CVA. He also has presumed coronary artery disease a double indication for lipid lowering therapy Patient was initially started on aspirin but given his need for more aggressive anticoagulation cardiology felt as though aspirin could be discontinued his not necessarily indicated as preventive effort for presumed coronary disease and in the setting of an intracardiac thrombus as a source of thromboembolic CVA aspirin is not necessarily indicated when patients or otherwise more aggressively anticoagulated. Therefore anti-platelet therapy was not continued in this patient upon discharge, it was felt as though it addition of antiplatelet therapy to direct oral anticoagulant would excessively increase his risk of bleeding without real improvement in risk of further neurologic events. Morning of discharge patient reported that his left hand was again minimally movable. No other associated symptoms in the left arm whatsoever. This is exactly this symptom for which he presented to the ER. No extension of symptoms no additional symptoms as above. No headache vital signs remained stable. Not felt to be a new event or hemorrhagic type conversion of his prior event therefore. Waxing and waning neurologic symptoms in exact distribution of prior CVA is not all that uncommon and I believe that is what is going on at this time. Otherwise he is clinically improved including from a respiratory standpoint and I think he is still safe to be discharged home this morning. Status at Discharge Cognitive/behavioral status at discharge: oriented Functional status at discharge: independent ambulation Overall status at discharge: patient is progressing back to baseline Time Spent with Patient Time spent: Greater than 30 minutes Exam Vital Signs (past 8 hours): - 07/21/22 02:00 07/21/22 05:24 Temperature 97.0 F L 97.2 F L Pulse Rate 71 64 Respiratory Rate 18 18 Blood Pressure 117/76 122/85 Pulse Oximetry 96 99 Oxygen Flow Rate 0 0 Oxygen Delivery Method Room Air Oxygen Flow Rate 0 Objective Labs 07/19/22 05:40 07/21/22 05:35 Labs: Laboratory Results - last 24 hr 07/20/22 07/21/22 07:35 05:35 APTT 51 H D Sodium 137 Potassium 3.8 D Chloride 109 H Carbon Dioxide 19 L BUN 17 Creatinine 0.56 L Estimated GFR > 60 BUN/Creatinine Ratio 30.4 H Glucose 94 Calcium 8.5 PFSH Medical History Abnormal EKG Elevated PSA Essential hypertension Hemorrhoid (~1994) Lower extremity edema Mixed hyperlipidemia Shortness of breath at rest Surgical History Anesthesia History of eye surgery History of tonsillectomy (~1964) Family History Mother Cancer Father CAD (coronary artery disease) Sister Cancer Grandmother Stroke Grandmother Hemorrhage Social History household members: spouse Smoking Status: Former smoker Tobacco: How many years used: 15 alcohol intake: current substance use type: does not use Discharge Assessment & Plan Assessment and Plan Plan of Treatment: Patient will be seen in the outpatient clinic by Dr. Bey in approximately 1 week's time pedal continue discharge medications as listed above Patient will have an appointment made with [facility] for hopefully sometime the next 2-4 weeks as per cardiology consultation. He will complete his cardiac evaluation as an outpatient as noted by consulting Cardiology Patient will be set up with outpatient physical therapy as well for his neurologic symptoms as above Discharge Plan Discharge Plan Patient Disposition: Home Discharge orders & Medications Prescriptions: New furosemide 40 mg Tablet 40 mg PO DAILY Qty: 90 3RF atorvastatin [Lipitor] 20 mg Tablet 20 mg PO BEDTIME Qty: 90 3RF spironolactone 25 mg Tablet 12.5 mg PO DAILY Qty: 45 3RF losartan 25 mg Tablet 12.5 mg PO DAILY Qty: 45 3RF metoprolol succinate 25 mg Tablet Extended Release 24 Hr 12.5 mg PO BID Qty: 90 3RF Eliquis 5 mg Tablet 5 mg PO BID Qty: 60 3RF Discontinued furosemide 20 mg tablet 20 mg PO DAILY Qty: 30 5RF Follow up/Referrals: Lauri Bey MD [Primary Care Provider] - 1 Week Neelima Orellana MD [Physician] - As previously scheduled (already scheduled per family) Discharge Health Status Multidrug resistant organism: No MDRO Diet/Activity/Treatments Diet: Low-sodium Visit Report/Discharge Packet Instructions: Potassium, Heart Failure, Echocardiogram, DI for Heart Failure, Right Brain Stroke, Atorvastatin, Furosemide, Metoprolol, Losartan, Knowing Your Ejection Fraction Stand Alone Forms: Patient Portal/API, Stroke Signs & Symptoms Discharge Data Primary Care Provider: Lauri Bey Quality VTE Deep Vein Thrombosis/Pulmonary Embolism Present on Admission: No
[2022-07-21 08:00] VITALS: BP 126/71; PULSE 74; RESP 20; TEMP 36; O2SAT 100
--- NOTE | 2022-07-21 08:01 | PC.NURSE ---
Spoke with Dr. Bey on the phone [phone] regarding patient's reports of new increased weakness and numbness in left hand. No other deficits noted in patient's condition. Dr. Bey stated he will see patient in the next hour or two. No new orders at this time. Will continue to monitor.
[2022-07-21] MEDS: FUROSEMIDE 40 MG TABLET PO (09:48)
[2022-07-21] MEDS: SPIRONOLACTONE 25 MG TABLET 12.5 MG PO (09:48)
[2022-07-21] MEDS: APIXABAN 5 MG TABLET PO (09:48)
[2022-07-21 09:50] VITALS: BP 126/71; PULSE 74
[2022-07-21] MEDS: LOSARTAN 25 MG TABLET 12.5 MG PO (09:50)
[2022-07-21 09:51] VITALS: BP 126/71; PULSE 74
[2022-07-21] MEDS: METOPROLOL ER 25 MG TABLET 12.5 MG PO (09:51)
--- NOTE | 2022-07-21 11:49 | PC.NURSE ---
Day shift discharge note: Discharge paperwork signed and all questions answered. Discussed new medications, scripts sent electronically to preferred pharmacy. Pharmacy discussed medications with patient, spouse, and adult child. IVs discontinued, tele removed. Patient has all belongings. Patient was wheeled via wheelchair to private vehicle by Filipe ESCALONA at approximately 1155.
== END 2022-07-21 11:55 | disposition home or self-care (01) | DRG 64 ==
LOC: ED 14:38 → AC 14:39
PROVIDERS: Family Medicine; Admitting Provider Family Medicine; Emergency Provider Emergency Medicine; Family Provider Internal Medicine; PCP Internal Medicine; Referring Provider Emergency Medicine; Visit Provider Internal Medicine
DX: I63.40 Cerebral infarction due to embolism of unspecified cerebral artery (principal); I50.21 Acute systolic (congestive) heart failure; I50.23 Acute on chronic systolic (congestive) heart failure; I24.0 Acute coronary thrombosis not resulting in myocardial infarction; I42.9 Cardiomyopathy, unspecified; I47.20 Ventricular tachycardia, unspecified; G83.22 Monoplegia of upper limb affecting left dominant side; R29.702 NIHSS score 2; I11.0 Hypertensive heart disease with heart failure; E78.5 Hyperlipidemia, unspecified; E87.6 Hypokalemia; Z20.822 Contact with and (suspected) exposure to COVID-19; Z87.891 Personal history of nicotine dependence
CPT/HCPCS: 36415; 70450; 70496; 70498; 70553; 71045; 80048; 80053; 80305; 80320; 81001; 82550; 82962; 83735; 83880; 84484; 85014; 85018; 85025; 85049; 85610; 85730; 87635; 93005; 93306; 96374; 97161; 97165; 97530; 99233; 99238; 99285; C9803; J1644; J1650; J1940; Q9967

== ENCOUNTER → 2022-07-26 09:16 | Outpatient (CLI) | payer MEDICARE, OTHER, SELFPAY ==
[2022-07-16 16:10] VITALS: BMI 22.0
[2022-07-26 10:56] LABS: BUN Creatinine Ratio 22.8 (6-22); Blood Urea Nitrogen 18 mg/dL (9-20); Calcium 9.1 mg/dL (8.4-10.2); Carbon Dioxide 26 mmol/L (22-32); Chloride 102 mmol/L (98-107); Estimated Glomerular Filt Rate > 60 mL/min (>60); Glucose 93 mg/dL (80-110); HEMOLYSIS < 15 (0-50); Sodium 138 mmol/L (137-145)
== END ==
PROVIDERS: Family Provider Internal Medicine; PCP Internal Medicine; Referring Provider Internal Medicine Cardiovascular Disease; Visit Provider Internal Medicine Cardiovascular Disease
DX: I50.22 Chronic systolic (congestive) heart failure (principal)
CPT/HCPCS: 36415; 80048

== ENCOUNTER → 2022-08-24 10:11 | Outpatient (CLI) | payer MEDICARE, OTHER, SELFPAY ==
[2022-07-16 16:10] VITALS: BMI 22.0
[2022-08-24 12:23] LABS: Add Manual Diff / Slide Review NO; Basophils Absolute Auto 0 /uL (0-100); Basophils Percent Auto 0.7 % (0-2); Eosinophils Absolute Auto 100 /uL (0-450); Eosinophils Percent Auto 2.7 % (2-4); Hematocrit 39.6 % (41-53); Hemoglobin 13.4 g/dL (13.5-17.5); Lymphocytes Absolute Auto 1400 /uL (1100-4500); Lymphocytes Percent Auto 27.7 % (25-40); Mean Corpuscular HGB Conc 33.9 % (30-36); Mean Corpuscular Hemoglobin 32.1 PG (26-34); Mean Corpuscular Volume 94.8 fL (80-100); Monocytes Absolute Auto 500 /uL (0-900); Monocytes Percent Auto 10.6 % (3-14); Neutrophils Absolute Auto 2900 /uL (1500-7000); Neutrophils Percent Auto 58.3 % (50-75); Platelet Count 191 X10^3/uL (150-400); Red Blood Cell Count 4.18 X10^6/uL (4.5-5.9); Red Cell Distribution Width 13.7 % (11.6-14.8); White Blood Cell Count 4.9 X10^3/uL (4.5-11.0)
[2022-08-24 13:09] LABS: BUN Creatinine Ratio 17.2 (6-22); Blood Urea Nitrogen 11 mg/dL (9-20); Calcium 8.4 mg/dL (8.4-10.2); Carbon Dioxide 27 mmol/L (22-32); Chloride 102 mmol/L (98-107); Estimated Glomerular Filt Rate > 60 mL/min (>60); Glucose 85 mg/dL (80-110); HEMOLYSIS < 15 (0-50); Potassium 4.2 mmol/L (3.4-5.1); Sodium 138 mmol/L (137-145)
== END ==
PROVIDERS: Family Provider Internal Medicine; PCP Internal Medicine; Referring Provider Internal Medicine Cardiovascular Disease; Visit Provider Internal Medicine Cardiovascular Disease
DX: I50.22 Chronic systolic (congestive) heart failure (principal)
CPT/HCPCS: 36415; 80048; 85025

== ENCOUNTER → 2022-12-07 11:10 | Outpatient (CLI) | payer MEDICARE, OTHER, SELFPAY ==
[2022-07-16 16:10] VITALS: BMI 22.0
[2022-12-07 12:36] LABS: Add Manual Diff / Slide Review NO; Basophils Absolute Auto 0 /uL (0-100); Basophils Percent Auto 0.6 % (0-2); Eosinophils Absolute Auto 100 /uL (0-450); Eosinophils Percent Auto 2.8 % (2-4); Hematocrit 37.8 % (41-53); Hemoglobin 12.9 g/dL (13.5-17.5); Lymphocytes Absolute Auto 1400 /uL (1100-4500); Lymphocytes Percent Auto 25.9 % (25-40); Mean Corpuscular HGB Conc 34.2 % (30-36); Mean Corpuscular Hemoglobin 33.1 PG (26-34); Mean Corpuscular Volume 96.8 fL (80-100); Monocytes Absolute Auto 600 /uL (0-900); Monocytes Percent Auto 11.1 % (3-14); Neutrophils Absolute Auto 3200 /uL (1500-7000); Neutrophils Percent Auto 59.6 % (50-75); Platelet Count 189 X10^3/uL (150-400); Red Cell Distribution Width 13.3 % (11.6-14.8); White Blood Cell Count 5.3 X10^3/uL (4.5-11.0)
[2022-12-07 13:17] LABS: BUN Creatinine Ratio 18.9 (6-22); Blood Urea Nitrogen 14 mg/dL (9-20); Calcium 8.7 mg/dL (8.4-10.2); Carbon Dioxide 28 mmol/L (22-32); Chloride 103 mmol/L (98-107); Cholesterol 161 mg/dL (140-199); Estimated Glomerular Filt Rate > 60 mL/min (>60); Glucose 92 mg/dL (80-110); HDL Cholesterol 54 mg/dL (40-60); HEMOLYSIS < 15 (0-50); LDL Cholesterol Calculated 89 mg/dL (<100); Potassium 4.6 mmol/L (3.4-5.1); Sodium 135 mmol/L (137-145); Triglycerides 91 mg/dL (35-150)
== END ==
PROVIDERS: Family Provider Internal Medicine; PCP Internal Medicine; Referring Provider Internal Medicine Cardiovascular Disease; Visit Provider Internal Medicine Cardiovascular Disease
DX: I50.22 Chronic systolic (congestive) heart failure (principal); E78.5 Hyperlipidemia, unspecified
CPT/HCPCS: 36415; 80048; 80061; 85025

== ENCOUNTER → 2022-12-08 13:36 | Outpatient (CLI) | payer MEDICARE, OTHER, SELFPAY ==
[2022-07-16 16:10] VITALS: BMI 22.0
--- NOTE | 2022-12-08 | DI.ECHO.S_ITS ---
[place] [facility]---------+ [facility] +---------+ : : [address] [place] [address] : : : : [id number] : : : : Phone: [phone] Echocardiogram Report + + :Name: THUY SALINAS JR, V Study Date: 12/08/2022 Height: 68 in : :[facility] ReadingLocation: Weight: 143 lb : : Gender: Male BSA: 1.8 m2 : :: 1945 Age: 77 yrs BP: 121/72 mmHg: :Reason For Study: SYSTOLIC HEART FAILURE : :Ordering Physician: DONALD, : :MELANIE KIDD Performed By: Anel Ferreira : :Referring: DOLORES HAQUE MD : + + Interpretation Summary 1) Severely enlarged left ventricle with severly reduced systolic function (EF 15-20%). 2) Mildly enlarged right ventricle with normal function. 3) Severe left atrial enlargement present. 4) There is mild mitral regurgitation. There is mild aortic regurgitation. 5) The right ventricular systolic pressure is estimated to be at least 24 mmHg based on an estimated right atrial pressure of 3 mm Hg. 6) Compared to the Echo done 07/17/2022, LVEF has improved about 10% to 15-20% and LV thrombus has resolved on this study. Procedure: A two-dimensional transthoracic echocardiogram with color flow and Doppler was performed. The study quality was technically adequate. Comparison is made with the echocardiogram of 07/17/2022. The heart rate ranged between 46-55 bpm during the study. Left Ventricle: The left ventricle is severely dilated. The estimated left ventricular end diastolic volume is 232 ml. There is normal left ventricular wall thickness. The ejection fraction is estimated to be 15-20%. There is severe global hypokinesis of the left ventricle. Right Ventricle: The right ventricle is mildly dilated. The right ventricular systolic function is normal. Atria: The left atrium is severely dilated. Right atrial size is normal. There is no Doppler evidence for an interatrial shunt. Mitral Valve: The mitral valve leaflets appear mildly thickened, but open well. There is mild mitral regurgitation. Aortic Valve: The aortic valve is trileaflet. The aortic valve opens well. There is no aortic valve stenosis. There is mild aortic regurgitation. Tricuspid Valve: The tricuspid valve leaflets are thin and pliable. The right ventricular systolic pressure is estimated to be at least 24 mmHg based on an estimated right atrial pressure of 3 mm Hg. There is mild tricuspid regurgitation. Pulmonic Valve: The pulmonic valve leaflets are thin and pliable; valve motion is normal. There is mild pulmonic regurgitation. Great Vessels: The aortic root is normal size. The dimensions of the ascending aorta are normal. The IVC is of normal diameter and collapses greater than 50% with a sniff. This suggests a low right atrial pressure of 3 mm Hg. Pericardium/ Pleura There is no pericardial effusion. There is no pleural effusion. MMode/2D Measurements & Calculations LVIDd: 7.0 cm LVOT diam: 2.3 cm LVIDs: 6.4 cm Ao root diam: 3.5 cm FS: 8.1 % asc Aorta Diam: 3.7 cm EPSS: 1.8 cm Ao Arch Diam (Prox Trans): 2.7 cm IVSd: 0.85 cm LVPWd: 0.71 cm LV caldwell. diameter/BSA (cm/m^2): 4.0 LV sys. diameter/BSA (cm/m^2): 3.6 LA A2 area: 28.5 cm2 RA long axis: 5.0 cm LA A4 area: 19.5 cm2 RA area: 16.4 cm2 LA length (vol): 5.2 cm RA vol: 45.5 ml LA vol: 90.9 ml RA : 25.7 ml/m2 LA vol index: 51.3 ml/m2 IVC diam: 0.70 cm RVD1 (basal): 4.1 cm RVD2 (mid): 2.9 cm TAPSE: 2.0 cm Doppler Measurements & Calculations Ao V2 max: 142.8 cm/sec LVOT Max Andrey: 91.1 cm/sec Ao V2 mean: 91.8 cm/sec LV V1 max P.3 mmHg Ao max P.2 mmHg LV V1 VTI: 19.9 cm Ao mean P.8 mmHg DARREN(I,D): 3.2 cm2 Ao V2 VTI: 27.3 cm DARREN(V,D): 2.7 cm2 sev ratio: 0.73 DARREN indexed to BSA (cm^2/m^2): 1.8 MV E max andrey: 43.3 cm/sec TR max andrey: 229.4 cm/sec MV A max andrey: 76.5 cm/sec TR max P.0 mmHg MV E/A: 0.57 PA V2 max: 85.8 cm/sec Med Peak E' Andrey: 5.6 cm/sec PA V2 mean: 60.2 cm/sec E/E' med: 7.7 PA mean P.6 mmHg Lat Peak E' Andrey: 2.7 cm/sec PA pr(Accel): 32.8 mmHg E/E' lat: 15.9 E/e' average: 11.8 MV dec time: 0.20 sec SV(LVOT): 85.9 ml Reading Physician:04:25 PM
== END ==
PROVIDERS: Family Provider Internal Medicine; PCP Internal Medicine; Referring Provider Internal Medicine Cardiovascular Disease; Visit Provider Internal Medicine Cardiovascular Disease
DX: I08.3 Combined rheumatic disorders of mitral, aortic and tricuspid valves (principal); I50.22 Chronic systolic (congestive) heart failure; I42.0 Dilated cardiomyopathy
CPT/HCPCS: 93306

== ENCOUNTER → 2023-05-14 10:58 | Outpatient (CLI) | payer MEDICARE, OTHER, SELFPAY ==
[2022-07-16 16:10] VITALS: BMI 22.0
[2023-05-14 13:12] LABS: Hematocrit 38.8 % (41-53); Hemoglobin 13.3 g/dL (13.5-17.5); Mean Corpuscular HGB Conc 34.4 % (30-36); Mean Corpuscular Hemoglobin 33.2 PG (26-34); Mean Corpuscular Volume 96.5 fL (80-100); Platelet Count 226 X10^3/uL (150-400); Red Blood Cell Count 4.02 X10^6/uL (4.5-5.9); Red Cell Distribution Width 13.8 % (11.6-14.8); White Blood Cell Count 6.1 X10^3/uL (4.5-11.0)
[2023-05-14 13:43] LABS: BUN Creatinine Ratio 18.7 (6-22); Blood Urea Nitrogen 14 mg/dL (9-20); Calcium 9.4 mg/dL (8.4-10.2); Carbon Dioxide 26 mmol/L (22-32); Chloride 105 mmol/L (98-107); Estimated Glomerular Filt Rate > 60 mL/min (>60); Glucose 93 mg/dL (80-110); HEMOLYSIS < 15 (0-50); Potassium 4.7 mmol/L (3.4-5.1); Sodium 136 mmol/L (137-145)
== END ==
PROVIDERS: Family Provider Internal Medicine; PCP Internal Medicine; Referring Provider Internal Medicine Cardiovascular Disease; Visit Provider Internal Medicine Cardiovascular Disease
DX: I42.0 Dilated cardiomyopathy (principal); I50.22 Chronic systolic (congestive) heart failure
CPT/HCPCS: 36415; 80048; 85027

== ENCOUNTER → 2023-11-03 11:09 | Outpatient (CLI) | payer MEDICARE, OTHER, SELFPAY ==
[2022-07-16 16:10] VITALS: BMI 22.0
[2023-11-03 11:44] LABS: Hematocrit 39.6 % (41-53); Hemoglobin 13.4 g/dL (13.5-17.5); Mean Corpuscular HGB Conc 33.8 % (30-36); Mean Corpuscular Hemoglobin 32.9 PG (26-34); Mean Corpuscular Volume 97.2 fL (80-100); Platelet Count 236 X10^3/uL (150-400); Red Blood Cell Count 4.07 X10^6/uL (4.5-5.9); Red Cell Distribution Width 13.5 % (11.6-14.8); White Blood Cell Count 5.9 X10^3/uL (4.5-11.0)
[2023-11-03 12:19] LABS: BUN Creatinine Ratio 17.8 (6-22); Blood Urea Nitrogen 13 mg/dL (9-20); Carbon Dioxide 27 mmol/L (22-32); Chloride 108 mmol/L (98-107); Cholesterol 157 mg/dL (140-199); Estimated Glomerular Filt Rate > 60 mL/min (>60); Glucose 95 mg/dL (80-110); HDL Cholesterol 54 mg/dL (40-60); HEMOLYSIS < 15 (0-50); LDL Cholesterol Calculated 88 mg/dL (<100); Potassium 4.5 mmol/L (3.4-5.1); Sodium 140 mmol/L (137-145); Triglycerides 73 mg/dL (35-150)
== END ==
LOC: LAB 11:11
PROVIDERS: Family Provider Internal Medicine; PCP Internal Medicine; Referring Provider Internal Medicine Cardiovascular Disease; Visit Provider Internal Medicine Cardiovascular Disease
DX: E78.5 Hyperlipidemia, unspecified (principal); I50.22 Chronic systolic (congestive) heart failure
CPT/HCPCS: 36415; 80048; 80061; 85027

== ENCOUNTER → 2023-11-09 12:26 | Outpatient (CLI) | payer MEDICARE, OTHER, SELFPAY ==
[2022-07-16 16:10] VITALS: BMI 22.0
--- NOTE | 2023-11-09 12:27 | DI.ECHO.S_ITS ---
[place] +---------+ Hospital : : [address] : : [place] : : [id number] : : Phone: [phone] Echocardiogram Report + + :Name: THUY SALINAS JR, V Study Date: 11/09/2023 Height: 68 in : :[facility] ReadingLocation: Weight: 150 lb : : Gender: Male BSA: 1.8 m2 : :: 1945 Age: 78 yrs BP: 143/78 mmHg: :Reason For Study: DILATED CARDIOMYOPATHY : :Ordering Physician: DONALD, : :MELANIE Performed By: Anel Ferreira : :Referring: MELANIE ORELLANA : + + Interpretation Summary 1) Moderately enlarged left ventricle with moderately to severely reduced systolic function (EF 30-35%). 2) Mid to distal inferolateral wall, mid anterior wall, mid to distal anterolateral wall, and true apex are severely hypokinetic to akinetic. 3) Mildly enlarged right ventricle with normal function. 4) There is mild to moderate mitral regurgitation. 5) Compared to the Echo done 12/08/2022, LVEF has increased from 15-20% to 30- 35% on this study. Procedure: A two-dimensional transthoracic echocardiogram with color flow and Doppler was performed. The study quality was technically adequate. Comparison is made with the echocardiogram of 12/08/2022. The patient was in sinus bradycardia with heart rates between 44-61 bpm during the exam. Left Ventricle: Proximal septal thickening is noted. The estimated left ventricular end diastolic volume is 211 ml. The left ventricle is moderately dilated. The ejection fraction is estimated to be 30-35%. Mid to distal inferolateral wall, mid anterior wall, mid to distal anterolateral wall, and true apex are severely hypokinetic to akinetic. Right Ventricle: The right ventricle is mildly dilated. The right ventricular systolic function is normal. Atria: The left atrium is moderately dilated. Right atrial size is normal. The interatrial septum is thin and hypermobile. Mitral Valve: The mitral valve leaflets appear mildly thickened, but open well. There is mild to moderate mitral regurgitation. Aortic Valve: The aortic valve is trileaflet. The aortic valve opens well. There is no aortic valve stenosis. There is mild aortic regurgitation. Tricuspid Valve: The tricuspid valve is normal in structure and function. There is mild tricuspid regurgitation. The right ventricular systolic pressure is estimated to be at least 22 mmHg based on an estimated right atrial pressure of 3 mm Hg. Pulmonic Valve: The pulmonic valve is not well visualized. There is no pulmonic valvular regurgitation. Great Vessels: The aortic root is normal size. The dimensions of the ascending aorta are normal. The IVC is of normal diameter and collapses greater than 50% with a sniff. This suggests a low right atrial pressure of 3 mm Hg. Pericardium/ Pleura There is no pericardial effusion. There is no pleural effusion. MMode/2D Measurements & Calculations LVIDd: 6.5 cm LVOT diam: 2.1 cm LVIDs: 5.6 cm Ao root diam: 3.9 cm FS: 13.3 % asc Aorta Diam: 3.7 cm IVSd: 0.91 cm Ao Arch Diam (Prox Trans): 3.1 cm LVPWd: 0.60 cm LV caldwell. diameter/BSA (cm/m^2): 3.6 LV sys. diameter/BSA (cm/m^2): 3.1 LA A2 area: 26.7 cm2 RA long axis: 5.2 cm LA A4 area: 18.0 cm2 RA area: 17.2 cm2 LA length (vol): 4.8 cm RA vol: 48.9 ml LA vol: 84.6 ml RA : 27.0 ml/m2 LA vol index: 46.8 ml/m2 IVC diam: 1.2 cm RVD1 (basal): 4.1 cm RVD2 (mid): 3.4 cm TAPSE: 1.7 cm Doppler Measurements & Calculations Ao V2 max: 141.9 cm/sec LVOT Max Andrey: 85.0 cm/sec Ao V2 mean: 107.9 cm/sec LV V1 max P.9 mmHg Ao max P.0 mmHg LV V1 VTI: 17.1 cm Ao mean P.9 mmHg DARREN(I,D): 1.8 cm2 Ao V2 VTI: 33.7 cm DARREN(V,D): 2.1 cm2 sev ratio: 0.51 DARREN indexed to BSA (cm^2/m^2): 0.99 MV E max andrey: 42.9 cm/sec TR max andrey: 221.8 cm/sec MV A max andrey: 63.6 cm/sec TR max P.7 mmHg MV E/A: 0.67 PA V2 max: 83.9 cm/sec Med Peak E' Andrey: 7.2 cm/sec PA V2 mean: 60.8 cm/sec E/E' med: 6.0 PA mean P.6 mmHg Lat Peak E' Andrey: 9.4 cm/sec PA pr(Accel): 20.8 mmHg E/E' lat: 4.6 E/e' average: 5.3 MV dec time: 0.24 sec MR ERO: 0.11 cm2 MR PISA: 1.7 cm2 SV(LVOT): 60.1 ml MR flow rate: 62.8 cm3/sec MR PISA radius: 0.52 cm Reading Physician:06:23 PM
== END ==
PROVIDERS: Family Provider Internal Medicine; PCP Internal Medicine; Referring Provider Internal Medicine Cardiovascular Disease; Visit Provider Internal Medicine Cardiovascular Disease
DX: I42.0 Dilated cardiomyopathy (principal); I08.3 Combined rheumatic disorders of mitral, aortic and tricuspid valves
CPT/HCPCS: 93306

== ENCOUNTER → 2024-05-29 10:48 | Outpatient (CLI) | payer MEDICARE, OTHER, SELFPAY ==
[2022-07-16 16:10] VITALS: BMI 22.0
[2024-05-29 11:37] LABS: Hematocrit 39.2 % (41-53); Hemoglobin 13.3 g/dL (13.5-17.5); Mean Corpuscular HGB Conc 33.8 % (30-36); Mean Corpuscular Volume 97.5 fL (80-100); Platelet Count 210 X10^3/uL (150-400); Red Blood Cell Count 4.02 X10^6/uL (4.5-5.9); Red Cell Distribution Width 13.7 % (11.6-14.8); White Blood Cell Count 5.1 X10^3/uL (4.5-11.0)
[2024-05-29 11:59] LABS: BUN Creatinine Ratio 14.8 (6-22); Blood Urea Nitrogen 12 mg/dL (9-20); Calcium 9.3 mg/dL (8.4-10.2); Carbon Dioxide 27 mmol/L (22-32); Chloride 106 mmol/L (98-107); Estimated Glomerular Filt Rate > 60 mL/min (>60); Glucose 92 mg/dL (80-110); HEMOLYSIS < 15 (0-50); Potassium 4.5 mmol/L (3.4-5.1); Sodium 137 mmol/L (137-145)
== END ==
PROVIDERS: Family Provider Internal Medicine; PCP Internal Medicine; Referring Provider Internal Medicine Cardiovascular Disease; Visit Provider Internal Medicine Cardiovascular Disease
DX: I50.22 Chronic systolic (congestive) heart failure (principal)
CPT/HCPCS: 36415; 80048; 85027

== ENCOUNTER → 2024-11-27 11:06 | Outpatient (CLI) | payer MEDICARE, OTHER, SELFPAY ==
[2022-07-16 16:10] VITALS: BMI 22.0
[2024-11-27 12:01] LABS: Hematocrit 37.6 % (41-53); Hemoglobin 12.9 g/dL (13.5-17.5); Mean Corpuscular HGB Conc 34.3 % (30-36); Mean Corpuscular Volume 96.3 fL (80-100); Platelet Count 222 X10^3/uL (150-400); Red Cell Distribution Width 13.4 % (11.6-14.8); White Blood Cell Count 7.6 X10^3/uL (4.5-11.0)
[2024-11-27 12:20] LABS: BUN Creatinine Ratio 17.6 (6-22); Blood Urea Nitrogen 13 mg/dL (9-20); Calcium 9.3 mg/dL (8.4-10.2); Carbon Dioxide 24 mmol/L (22-32); Chloride 107 mmol/L (98-107); Cholesterol 138 mg/dL (140-199); Estimated Glomerular Filt Rate > 60 mL/min (>60); Glucose 99 mg/dL (70-99); HDL Cholesterol 49 mg/dL (40-60); HEMOLYSIS < 15 (0-50); LDL Cholesterol Calculated 71 mg/dL (<100); Potassium 4.4 mmol/L (3.4-5.1); Sodium 137 mmol/L (137-145); Triglycerides 90 mg/dL (35-150)
[2024-11-27 12:29] LABS: NT-proBNP (BNP-Adult 18+) 689 pg/mL (<450)
== END ==
PROVIDERS: Family Provider Internal Medicine; PCP Internal Medicine; Referring Provider Internal Medicine Cardiovascular Disease; Visit Provider Internal Medicine Cardiovascular Disease
DX: E78.5 Hyperlipidemia, unspecified (principal); I42.0 Dilated cardiomyopathy; I50.22 Chronic systolic (congestive) heart failure
CPT/HCPCS: 36415; 80048; 80061; 83880; 85027

== ENCOUNTER → 2024-11-27 11:56 | Outpatient (CLI) | payer MEDICARE, OTHER, SELFPAY ==
[2022-07-16 16:10] VITALS: BMI 22.0
--- NOTE | 2024-11-27 | DI.ECHO.S_ITS ---
[place] +---------+ Hospital : : [address] : : [place] : : [id number] : : Phone: [phone] Echocardiogram Report + + :Name: THUY SALINAS JR, V Study Date: 11/27/2024 Height: 68 in : :[facility] ReadingLocation: Weight: 134 lb : : Gender: Male BSA: 1.7 m2 : :: 1945 Age: 79 yrs BP: 118/76 mmHg: :Reason For Study: CHRONIC SYSTOLIC HEART FAILURE : :Ordering Physician: DONALD, : :MELANIE Performed By: Anel Ferreira : :Referring: MELANIE ORELLANA : + + Interpretation Summary 1) Moderately enlarged left ventricle with moderately reduced systolic function (EF 35-40%). 2) Mid to distal inferolateral wall, basal inferior wall, mid anterior wall, mid anterolateral wall, and true apex are severely hypokinetic to akinetic. 3) Mildly enlarged right ventricle with normal function. 4) There is mild to moderate mitral regurgitation. 5) Compared to the Echo done 11/09/2023, LVEF has improved slightly from 30-35% to 35-40% on this study. Procedure: A two-dimensional transthoracic echocardiogram with color flow and Doppler was performed. The study quality was technically adequate. Comparison is made with the echocardiogram of 11/09/2023. The patient had occasional PVCs during the exam. The heart rate ranged between 52-74 bpm during the study. Left Ventricle: Proximal septal thickening is noted. The left ventricle is moderately dilated. The estimated left ventricular end diastolic volume is 165 ml. LVED volume by BSA of 96.17ml/m2. The ejection fraction is estimated to be 35-40%. Mid to distal inferolateral wall, basal inferior wall, mid anterior wall, mid anterolateral wall, and true apex are severely hypokinetic to akinetic. Diastolic function could not be accurately assessed due to atrial fibrillation. Right Ventricle: The right ventricle is mildly dilated. The right ventricular systolic function is normal. Atria: The left atrium is moderately dilated. Right atrial size is normal. The interatrial septum is thin and hypermobile. Mitral Valve: The mitral valve leaflets appear moderately thickened, but open well. There is mild to moderate mitral regurgitation. Aortic Valve: The aortic valve is trileaflet. The aortic valve is mildly calcified. There is no aortic valve stenosis. No aortic regurgitation is present. Tricuspid Valve: The tricuspid valve leaflets are thin and pliable. There is mild tricuspid regurgitation. The right ventricular systolic pressure is estimated to be at least 25 mmHg based on an estimated right atrial pressure of 3 mm Hg. Pulmonic Valve: The pulmonic valve leaflets are thin and pliable; valve motion is normal. There is no pulmonic valvular regurgitation. Great Vessels: The aortic root is normal size. The ascending aorta is at the upper limits of normal in size. The IVC is of normal diameter and collapses greater than 50% with a sniff. This suggests a low right atrial pressure of 3 mm Hg. Pericardium/ Pleura There is no pericardial effusion. There is no pleural effusion. MMode/2D Measurements & Calculations LVIDd: 6.2 cm LVOT diam: 2.3 cm LVIDs: 5.0 cm Ao root diam: 3.7 cm FS: 19.3 % asc Aorta Diam: 3.8 cm EPSS: 0.83 cm Ao Arch Diam (Prox Trans): 3.0 cm IVSd: 0.80 cm LVPWd: 0.75 cm LV caldwell. diameter/BSA (cm/m^2): 3.6 LV sys. diameter/BSA (cm/m^2): 2.9 LA A2 area: 24.7 cm2 RA long axis: 4.7 cm LA A4 area: 18.6 cm2 RA area: 15.6 cm2 LA length (vol): 4.8 cm RA vol: 44.2 ml LA vol: 80.6 ml RA : 25.6 ml/m2 LA vol index: 46.8 ml/m2 IVC diam: 1.4 cm RVD1 (basal): 4.2 cm TAPSE: 2.1 cm Doppler Measurements & Calculations Ao V2 max: 145.6 cm/sec LVOT Max Andrey: 84.3 cm/sec Ao V2 mean: 97.3 cm/sec LV V1 max P.9 mmHg Ao max P.6 mmHg LV V1 VTI: 17.1 cm Ao mean P.3 mmHg DARREN(I,D): 2.5 cm2 Ao V2 VTI: 29.0 cm DARREN(V,D): 2.4 cm2 sev ratio: 0.59 DARREN indexed to BSA (cm^2/m^2): 1.4 MV E max andrey: 65.4 cm/sec TR max andrey: 236.2 cm/sec Med Peak E' Andrey: 4.7 cm/sec TR max P.3 mmHg E/E' med: 13.9 PA V2 max: 65.1 cm/sec Lat Peak E' Andrey: 11.6 cm/sec PA V2 mean: 43.4 cm/sec E/E' lat: 5.6 PA mean P.86 mmHg E/e' average: 9.7 PA pr(Accel): 12.2 mmHg MV dec time: 0.21 sec MR ERO: 0.10 cm2 MR PISA: 1.7 cm2 SV(LVOT): 72.3 ml MR flow rate: 55.8 cm3/sec MR PISA radius: 0.52 cm Reading Physician:09:24 PM
== END ==
LOC: ECHO 11:57
PROVIDERS: Family Provider Internal Medicine; PCP Internal Medicine; Referring Provider Internal Medicine Cardiovascular Disease; Visit Provider Internal Medicine Cardiovascular Disease
DX: I50.22 Chronic systolic (congestive) heart failure (principal); I08.2 Rheumatic disorders of both aortic and tricuspid valves; I70.0 Atherosclerosis of aorta
CPT/HCPCS: 36415; 80048; 80061; 83880; 85027; 93306